=== PATIENT | male | born 1990 | race American Indian/Alaskan Native ===

== ENCOUNTER → 2021-02-01 14:47 | Outpatient (BNVA) | payer SELFPAY | DX: Z11.1 Encounter for screening for respiratory tuberculosis (principal) ==

== ENCOUNTER 2021-07-12 15:04 | Emergency (ER) | payer OTHER, SELFPAY ==
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
[2021-07-12 15:49] VITALS: BP 134/80; PULSE 62; RESP 18; TEMP 36.8; O2SAT 99; BMI 23.6
== END 2021-07-12 16:02 | disposition home or self-care (01) ==
LOC: HO.ED 16:00
PROVIDERS: Emergency Provider Student in an Organized Health Care Education/Training Program
DX: S80.812A Abrasion, left lower leg, initial encounter (principal); M79.605 Pain in left leg; V19.40XA Pedal cycle driver injured in collision with unspecified motor vehicles in traffic accident, initial encounter; Y93.9 Activity, unspecified; Y92.410 Unspecified street and highway as the place of occurrence of the external cause; Y99.9 Unspecified external cause status; Z79.899 Other long term (current) drug therapy
CPT/HCPCS: 99283

== ENCOUNTER 2021-12-18 01:52 | Emergency (ER) | payer MEDICAID, SELFPAY ==
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
[2021-12-18 02:02] VITALS: BP 96/81; PULSE 103; RESP 18; TEMP 38.3; O2SAT 96; BMI 54.8
[2021-12-18 02:22] LABS: Basophils Percent Auto 0.1 % (0-2); Eosinophils Absolute Auto 0.1 X10*3/uL (0.0-0.4); Eosinophils Percent Auto 0.4 % (0-4); Hematocrit 45.7 % (42.0-52.0); Hemoglobin 15.4 g/dl (14.0-18.0); Imm Gran Abs Auto 0.05 X10*3/uL (0.00-0.03); Imm Gran Pct Auto 0.4 % (0.0-0.4); Lymphocytes Absolute Auto 0.5 X10*3/uL (1.2-4.9); Lymphocytes Percent Auto 3.4 % (20-40); MANUAL DIFF FLAG SCAN; Mean Corpuscular HGB Conc 33.7 g/dl (31.0-36.0); Mean Corpuscular Hemoglobin 29.4 pg (27.0-33.0); Mean Corpuscular Volume 87.2 fL (80.0-98.0); Mean Platelet Volume 10.7 fL (9.4-12.4); Monocytes Absolute Auto 0.5 X10*3/uL (0.1-1.2); Monocytes Percent Auto 3.8 % (2-11); Neutrophils Absolute Auto 12.5 x10*3/uL (2.0-8.3); Neutrophils Percent Auto 91.9 % (45-73); Platelet Count 160 X10*3/uL (160-400); Red Blood Count 5.24 X10*6/uL (4.60-5.80); Red Cell Distribution Width 11.6 % (11.0-16.0); SCAN SMEAR FLAG 1; White Blood Count 13.6 X10*3/uL (4.8-10.8)
[2021-12-18 02:39] LABS: Anion Gap 14 (12-20); Blood Urea Nitrogen 14 mg/dL (9-16); Calcium 9.2 mg/dL (8.4-10.2); Carbon Dioxide 25 mmol/L (22-29); Chloride 101 mmol/L (96-108); Creatinine Clr Calc Pharmacy 140.7; Estimated Glomerular Filt Rate > 60; Glucose Random 109 mg/dL (60-115); Potassium 4.1 mmol/L (3.3-5.1); Sodium 136 mmol/L (135-145)
[2021-12-18 02:42] LABS: COVID-19 Test Negative (Negative); IDNOW Serial# 55D5AD1C; Influenza A Negative (Negative); Influenza B2 Negative (Negative)
[2021-12-18 02:58] LABS: SLIDE REVIEW VERIFIED
--- NOTE | 2021-12-18 03:36 | ED.NAVMDI ---
HPI - Nausea/Vomiting/Diarrhea General Chief complaint: Abdominal Pain Stated complaint: heartburn after eating seafood (since 3pm)vomiting Time Seen by Provider: 12/18/21 03:30 Source: patient Mode of arrival: ambulatory Limitations: no limitations History of Present Illness HPI Narrative: Patient comes to emergency room complaining of hours of nausea vomiting, no diarrhea, mild abdominal cramping. Patient states that he ate fish, octopus and other seafood items in a salad earlier today after work. Patient states that he has been having a lot of reflux, nausea. Patient self induced vomiting by sticking his fingers in his mouth. Related Data Previous Rx's Medication Instructions Recorded doxycycline monohydrate 100 mg 100 mg PO BID #20 tab 07/12/21 tablet ibuprofen 800 mg tablet 800 mg PO Q8H PRN #20 tab 07/12/21 mupirocin 2 % topical ointment 1 appl TOPICAL TID #22 g 07/12/21 ondansetron 4 mg disintegrating 4 mg PO Q6H PRN #10 tab 12/18/21 tablet Allergies Allergy/AdvReac Type Severity Reaction Status Date / Time No Known Allergies Allergy Verified 12/18/21 02:02 [No Known Allergies*] Review of Systems Review of Systems: Constitutional : No Weight loss, No Fever, No Chills, No Night Sweats, No Fatigue, No Malaise ENT/Mouth : No Hearing loss, No Ear Pain, No Nasal Congestion, No Sinus Pain, No Hoarseness, No sore throat, No Rhinorrhea, No Swallowing Difficulty Eyes: No Eye Pain, No Swelling, No Redness, No Foreign Body, No Discharge, No Vision Changes Cardiovascular : No Chest Pain, No SOB, No Dyspnea on Exertion, No Orthopnea, No Edema, No Palpitations Respiratory : No Cough, No Sputum, No Wheezing, No Smoke Exposure, No Dyspnea Gastrointestinal : Complaining of nausea vomiting No Diarrhea, No Constipation, complaining of mild abdominal cramping Genitourinary : no irregular bleeding, No Dysuria, No Urinary Frequency, No Hematuria, No Urinary Incontinence, No Urgency, No Flank Pain, No Urinary Flow Changes, No Hesitancy Musculoskeletal : No joint pain, No Myalgias, No Joint Swelling Skin : No Skin Lesions, No rash Neuro : No Weakness, No Numbness, No Paresthesias, No Loss of Consciousness, No Dizziness, No Headache Psych : No Anxiety/Panic, No Depression, No SI/HI/AH/VH, No Social Issues, Heme/Lymph: No Bruising, No Bleeding,No Lymphadenopathy Endocrine : No Polyuria, No Polydipsia, No Temperature Intolerance [facility] Social History Social History Alcohol intake: never Patient Tobacco Use Status: Never used Tobacco Use of substances other than those prescribed or required for medical reasons: No Advance Directives: No Advance Directives Information Provided: No Physical Exam Vital Signs: Vital Signs: Last Vital Signs Temp 100.9 F H 12/18/21 02:02 Pulse 83 12/18/21 04:00 Resp 16 12/18/21 04:00 BP 116/63 12/18/21 04:00 Pulse Ox 98 12/18/21 04:00 BMI result Body Mass Index 54.8 Const: Other: Appearance: Alert. Oriented X3. No acute distress. Eyes: Pupils equal, round and reactive to light. ENT: Pharynx normal. Neck: Normal inspection. Neck supple. No lymph nodes noted. No crepitus CVS: Normal heart rate and rhythm. Pulses normal. Normal S1 and S2 Respiratory: No respiratory distress. Breath sounds normal. No Wheezing. No rales Abdomen: Soft and nontender. No rigidity. No distention. Skin: Skin warm and dry. Normal skin color. Normal skin turgor. Extremities: No lower extremity edema. No Lacerations. No Rash Neuro: Oriented X 3. No motor deficit. No sensory deficit. Moving all extremities. No slurred speech. CN 2 through 12 grossly intact Psych: calm, cooperative, normal affect Course Course Course Narrative: Patient was given 1 L of IV fluids, Zofran, Pepcid. All labs pending. It was noted that patient has a temperature of 100.9 degrees oral. Patient denies any flu-like symptoms, patient tested negative for COVID and influenza. Chest x-ray and urinalysis pending. Patient has UTI symptoms either Patient tested negative. Chest x-ray within limits Patient likely having a viral syndrome MDM - Nausea/Vomiting/Diarrhea Lab Data Result diagrams: 12/18/21 02:14 12/18/21 02:14 Labs: Lab Results 12/18/21 12/18/21 12/18/21 Range/Units 02:12 02:12 02:14 WBC 13.6 H (4.8-10.8) X10*3/uL RBC 5.24 (4.60-5.80) X10*6/uL Hgb 15.4 (14.0-18.0) g/dl Hct 45.7 (42.0-52.0) % MCV 87.2 (80.0-98.0) fL MCH 29.4 (27.0-33.0) pg MCHC 33.7 (31.0-36.0) g/dl RDW 11.6 (11.0-16.0) % Plt Count 160 (160-400) X10*3/uL MPV 10.7 (9.4-12.4) fL Immature Gran % (Auto) 0.4 (0.0-0.4) % Neut % (Auto) 91.9 H (45-73) % Lymph % (Auto) 3.4 L (20-40) % [place] % (Auto) 3.8 (2-11) % Eos % (Auto) 0.4 (0-4) % Baso % (Auto) 0.1 (0-2) % Lymph # (Auto) 0.5 L (1.2-4.9) X10*3/uL [place] # (Auto) 0.5 (0.1-1.2) X10*3/uL Eos # (Auto) 0.1 (0.0-0.4) X10*3/uL Baso # (Auto) 0.0 (0.0-0.2) X10*3/uL Abs Immat Gran (auto) 0.05 H (0.00-0.03) X10*3/uL Absolute Neuts (auto) 12.5 H (2.0-8.3) x10*3/uL Absolute Nucleated RBC 0.000 (0.0-0.012) X10*3/uL Nucleated RBC % (auto) 0.0 (0.0-0.2) /100WBC Smear Tech's Comments VERIFIED Sodium (135-145) mmol/L Potassium (3.3-5.1) mmol/L Chloride (96-108) mmol/L Carbon Dioxide (22-29) mmol/L Anion Gap (12-20) BUN (9-16) mg/dL Creatinine (0.5-1.4) mg/dL Estim Creat Clear Calc Estimated GFR Random Glucose (60-115) mg/dL Calcium (8.4-10.2) mg/dL COVID-19 (WOLF) Negative (Negative) COVID-19 Clin Com See Note Influenza Type A (ZEFERINO) Negative (Negative) Influenza Type B (ZEFERINO) Negative (Negative) Influenza A & B Note See Note 12/18/21 Range/Units 02:14 WBC (4.8-10.8) X10*3/uL RBC (4.60-5.80) X10*6/uL Hgb (14.0-18.0) g/dl Hct (42.0-52.0) % MCV (80.0-98.0) fL MCH (27.0-33.0) pg MCHC (31.0-36.0) g/dl RDW (11.0-16.0) % Plt Count (160-400) X10*3/uL MPV (9.4-12.4) fL Immature Gran % (Auto) (0.0-0.4) % Neut % (Auto) (45-73) % Lymph % (Auto) (20-40) % [place] % (Auto) (2-11) % Eos % (Auto) (0-4) % Baso % (Auto) (0-2) % Lymph # (Auto) (1.2-4.9) X10*3/uL [place] # (Auto) (0.1-1.2) X10*3/uL Eos # (Auto) (0.0-0.4) X10*3/uL Baso # (Auto) (0.0-0.2) X10*3/uL Abs Immat Gran (auto) (0.00-0.03) X10*3/uL Absolute Neuts (auto) (2.0-8.3) x10*3/uL Absolute Nucleated RBC (0.0-0.012) X10*3/uL Nucleated RBC % (auto) (0.0-0.2) /100WBC Smear Tech's Comments Sodium 136 (135-145) mmol/L Potassium 4.1 (3.3-5.1) mmol/L Chloride 101 (96-108) mmol/L Carbon Dioxide 25 (22-29) mmol/L Anion Gap 14 (12-20) BUN 14 (9-16) mg/dL Creatinine 1.23 (0.5-1.4) mg/dL Estim Creat Clear Calc 140.7 Estimated GFR > 60 Random Glucose 109 (60-115) mg/dL Calcium 9.2 (8.4-10.2) mg/dL COVID-19 ([facility]OL[facility]) (Negative) COVID-19 Clin Com Influenza Type A (ZEFERINO) (Negative) Influenza Type B (ZEFERINO) (Negative) Influenza A & B Note Imaging Data Chest x-ray: Radiologist's impression: ?Lungs are clear. No consolidation, pneumothorax, or pleural effusion. Cardiac and mediastinal contours are normal. Pulmonary vasculature is unremarkable. Osseous structures are unremarkable. XR/XR chest 1V IMPRESSION: No acute cardiopulmonary findings Discharge Plan Discharge Clinical Impression: Vomiting, Abdominal pain Patient Disposition: Home, Self-Care Instructions: Acute Nausea and Vomiting (ED), Abdominal Pain (ED) Additional Instructions: Please follow-up with your primary care physician tomorrow. If you have any worsening or new symptoms, please return to the emergency room or call 911 Prescriptions: New ondansetron 4 mg tablet,disintegrating 4 mg PO Q6H PRN (Reason: nausea and vomiting) Qty: 10 0RF No Action doxycycline monohydrate 100 mg tablet 100 mg PO BID Qty: 20 0RF ibuprofen 800 mg tablet 800 mg PO Q8H PRN (Reason: pain) Qty: 20 0RF mupirocin 2 % ointment 1 appl topical TID Qty: 22 0RF
[2021-12-18 04:00] VITALS: BP 116/63; PULSE 83; RESP 16; O2SAT 98
[2021-12-18] MEDS: 0.9 % Sodium Chloride 1,000 ML 999 ML IVCONT (04:00)
[2021-12-18] MEDS: Famotidine/PF 20 MG/2 ML VIAL IVPUSH (04:00)
[2021-12-18] MEDS: ondansetron HCL 4 MG/2 ML VIAL IVPUSH (04:01)
== END 2021-12-18 05:27 | disposition home or self-care (01) ==
PROVIDERS: Emergency Provider Emergency Medicine
DX: R11.2 Nausea with vomiting, unspecified (principal); R10.9 Unspecified abdominal pain; Z20.822 Contact with and (suspected) exposure to COVID-19; R50.9 Fever, unspecified
CPT/HCPCS: 36415; 71045; 80048; 85025; 87502; 87635; 96361; 96374; 96375; 99284; J2405

== ENCOUNTER 2022-04-17 21:39 | Emergency (ER) | payer OTHER, MEDICAID, SELFPAY ==
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
[2022-04-17 22:02] VITALS: BP 116/59; PULSE 67; RESP 18; TEMP 36.3; O2SAT 99; BMI 22.3
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
[2022-04-18] MEDS: Ibuprofen 600 MG TABLET PO (00:42)
[2022-04-18] MEDS: Acetaminophen 325 MG TABLET 975 MG PO (00:43)
== END 2022-04-18 00:51 | disposition home or self-care (01) ==
PROVIDERS: Emergency Provider Emergency Medicine Emergency Medical Services
DX: S46.912A Strain of unspecified muscle, fascia and tendon at shoulder and upper arm level, left arm, initial encounter (principal); S89.92XA Unspecified injury of left lower leg, initial encounter; S00.31XA Abrasion of nose, initial encounter; M25.512 Pain in left shoulder; M25.562 Pain in left knee; V43.52XA Car driver injured in collision with other type car in traffic accident, initial encounter; Y93.9 Activity, unspecified; Y92.488 Other paved roadways as the place of occurrence of the external cause; Y99.9 Unspecified external cause status; Z79.899 Other long term (current) drug therapy
CPT/HCPCS: 73030; 73562; 99283; 99284

== ENCOUNTER 2023-08-02 21:26 | Emergency (ER) | payer MEDICAID, SELFPAY ==
--- NOTE | ~2023-08-02 | XR_ITS ---
EXAMINATION: XR CHEST CLINICAL INFORMATION: Fever COMPARISON: Previous chest x-ray November 2021 TECHNIQUE: 2 views of the chest were obtained. FINDINGS: No significant abnormality is noted involving the heart, lungs, mediastinum, bony thorax or soft tissues. XR/XR chest 2V IMPRESSION: Unremarkable examination.
[2023-08-02 21:30] VITALS: BP 119/56; PULSE 73; RESP 16; TEMP 38.4; O2SAT 98; BMI 23.7
[2023-08-02 21:52] LABS: Appearance Urine Clear; Color Urine Yellow; Glucose Urine UA Negative (Negative); Leukocyte Esterase Urine Negative (Negative); Nitrite Urine Negative (Negative); Urine Blood Negative (Negative); Urine Ketones Negative (Negative); Urine Protein Trace mg/dL (Neg-Trace)
[2023-08-02 22:04] LABS: IDNOW Serial# 08D9AD1C; Strep A Nucleic Acid Negative (Negative)
[2023-08-02] MEDS: Ondansetron ODT 4 MG TAB.RAPDIS TRANSLINGU (22:22)
[2023-08-02] MEDS: Acetaminophen 325 MG TABLET 975 MG PO (22:22)
--- NOTE | 2023-08-02 22:22 | ED_ITS ---
HPI - Fever General Chief Complaint: General Medical Stated Complaint: since , high fever Time Seen by Provider: 08/02/23 22:15 Source: patient Mode of arrival: ambulatory Limitations: no limitations History of Present Illness HPI Narrative: 32 yo male otherwise healthy not vaccinated here with fevers and body aches, cough and did vomit on Monday. He is now eating at this time. He has no known sick contacts he did go to work yesterday but it was hard and he didn't feel well. MD elicited complaint: fever Onset (ago): day(s) (2) Exacerbating factors: nothing Relieving factors: cold medicine and rest Associated symptoms: rhinorrhea, cough, nausea and other (myalgias) Treatments prior to arrival fever: none Related Data Previous Rx's Medication Instructions Recorded doxycycline monohydrate 100 mg 100 mg PO BID #20 tabs 07/12/21 tablet ibuprofen 800 mg tablet 800 mg PO Q8H PRN pain #20 tabs 07/12/21 mupirocin 2 % topical ointment 1 appl topical TID #22 grams 07/12/21 ondansetron 4 mg disintegrating 4 mg PO Q6H PRN nausea and 12/18/21 tablet vomiting #10 tabs Allergies Allergy/AdvReac Type Severity Reaction Status Date / Time No Known Allergies Allergy Verified 04/17/22 22:02 [No Known Allergies*] Review of Systems Review of Systems: Constitutional : positive Fever, positive Chills, positive fatigue, positive Malaise ENT/Mouth : no sore throat, positive runny nose Eyes: No Discharge Cardiovascular : No Chest Pain, No SOB Respiratory : pos Cough, No Sputum Gastrointestinal : No Nausea, No Vomiting, No Diarrhea Genitourinary : No Dysuria, No Urinary Frequency Musculoskeletal : positive Myalgia Skin : No rash Neuro : No Headache All other systems reviewed and are negative PMFSH Social History Social History Alcohol intake: never Patient Tobacco Use Status: Never used Tobacco Advance Directives: No Advance Directives Information Provided: No Physical Exam Vital Signs: Vital Signs: Last Vital Signs Temp 101.2 F H 08/02/23 21:30 Pulse 73 08/02/23 21:30 Resp 16 08/02/23 21:30 BP 119/56 L 08/02/23 21:30 Pulse Ox 98 08/02/23 21:30 O2 Del Method Room Air 08/02/23 21:30 BMI result Body Mass Index 23.7 Appearance: Alert. Oriented X3. No acute distress. Eyes: Pupils equal, round and reactive to light. ENT: Pharynx normal. Neck: Normal inspection. Neck supple. CVS: Normal heart rate and rhythm. Pulses normal. Respiratory: No respiratory distress. Breath sounds normal. Abdomen: Soft and nontender. Skin: Skin warm and dry. Normal skin color. Normal skin turgor. Extremities: No lower extremity edema. No calf ttp Neuro: Oriented X 3. No motor deficit. No sensory deficit. Medications Administered Discontinued Medications Generic Name Dose Route Start Last Admin Trade Name Freq PRN Reason Stop Dose Admin Acetaminophen 975 mg 08/02/23 22:16 08/02/23 22:22 Acetaminophen 325 Mg Tablet PO 08/02/23 22:17 975 mg ONCE ONE Administration Ondansetron HCl 4 mg 08/02/23 22:16 08/02/23 22:22 Ondansetron Odt 4 Mg Tab.Rapdis TRANSLINGU 08/02/23 22:17 4 mg ONCE ONE Administration Medical Decision Making Medical Decision Making [facility] [place] Narrative: 32 yo male not vaccinated here with viral like symptoms not toxic, tolerating PO now - at this time viral panel, CXR ordered. He looks well suspect viral sympto ms. Did discuss use of paxlovid if positive and he refuses at this time. Given precautions to return. Differential Diagnosis Differential Diagnoses: The differential diagnosis associated with the presentation includes pneumonia, viral infection Admission/Observation Consideration of admission/observation: Escalation of care including admission/observation considered no hypoxia, not toxic, tolerating PO Lab Data [facility] [place] Lab Attestation statement: I reviewed the patient's lab results. Labs: Lab Results 08/02/23 08/02/23 Range/Units 21:39 21:40 Urine Color Yellow Urine Appearance Clear Urine pH 8.0 (5.0-9.0) Ur Specific [place] 1.020 (1.005-1.025) Urine Protein Trace (Neg-Trace) mg/dL Urine Glucose (UA) Negative (Negative) mg/dL Urine Ketones Negative (Negative) mg/dL Urine Blood Negative (Negative) Urine Nitrite Negative (Negative) Ur Leukocyte Esterase Negative (Negative) Influenza Type A (PCR) NEGATIVE (Negative) Influenza Type B (PCR) NEGATIVE (Negative) RSV RNA Qual (PCR) NEGATIVE (Negative) SARS-CoV-2 RNA (RT-PCR) POSITIVE A (Negative) S. pyogenes GrpA ZEFERINO Negative (Negative) Independent Interpretation I performed an independent interpretation of an: Plain X-Ray (no pneumonia) Radiology Impression Discussion of test interpretation with radiology: I have reviewed the radiologist's reading. Independent Historian Clinical information obtained from an independent historian. History obtained from or confirmed by: Spouse Prescription Management I considered prescription management with: Antiviral (refuses) Discharge Plan Discharge Clinical Impression: COVID-19 Patient Disposition: Home, Self-Care Instructions: COVID-19 (Coronavirus Disease 2019) (ED) Additional Instructions: return for worsening breathing, chest pain, inability to eat or drink or any other concerns. wear a mask and protect others. Regrese si empeora la respiraci?n, dolor en el pecho, incapacidad para comer o beber o cualquier otra inquietud. use tamanna m?scara y proteja a los dem?s. Prescriptions: No Action ondansetron 4 mg tablet,disintegrating 4 mg PO Q6H PRN (Reason: nausea and vomiting) Qty: 10 0RF doxycycline monohydrate 100 mg tablet 100 mg PO BID Qty: 20 0RF ibuprofen 800 mg tablet 800 mg PO Q8H PRN (Reason: pain) Qty: 20 0RF mupirocin 2 % ointment 1 appl topical TID Qty: 22 0RF Stand Alone Forms: Work/School Release Print Language: Tongan
[2023-08-02 22:31] LABS: Influenza A PCR NEGATIVE (Negative); Influenza B PCR NEGATIVE (Negative); Resp Syncy Virus RNA Qual PCR NEGATIVE (Negative); SARS COV2 PCR INHOUSE POSITIVE (Negative)
== END 2023-08-02 22:55 | disposition home or self-care (01) ==
PROVIDERS: Emergency Provider Emergency Medicine
DX: U07.1 COVID-19 (principal); R50.9 Fever, unspecified; R05.9 Cough, unspecified; R11.2 Nausea with vomiting, unspecified; M79.10 Myalgia, unspecified site; Z79.899 Other long term (current) drug therapy
CPT/HCPCS: 0241U; 71046; 81003; 87651; 99283

== ENCOUNTER 2023-10-20 12:30 | Emergency (ER) | payer MEDICAID, SELFPAY ==
--- NOTE | ~2023-10-20 | XR_ITS ---
EXAMINATION: XR LUMBOSACRAL SPINE CLINICAL INFORMATION: Sudden pain after lifting. COMPARISON: None available. TECHNIQUE: Three views of the lumbosacral spine. FINDINGS: The vertebral bodies and posterior elements are normal. The disc spaces are preserved and the vertebral alignment is normal. The paraspinal soft tissues are normal. XR/XR lumbar spine 2-3V IMPRESSION: Unremarkable lumbar spine exam.
--- NOTE | 2023-10-20 13:08 | ED.BACK ---
HPI - Back Pain/Injury General Chief Complaint: Back Pain/Injury Stated Complaint: Back Pain No Injury Time Seen by Provider: 10/20/23 14:50 Related Data Previous Rx's Medication Instructions Recorded doxycycline monohydrate 100 mg 100 mg PO BID #20 tabs 07/12/21 tablet ibuprofen 800 mg tablet 800 mg PO Q8H PRN pain #20 tabs 07/12/21 mupirocin 2 % topical ointment 1 appl topical TID #22 grams 07/12/21 ondansetron 4 mg disintegrating 4 mg PO Q6H PRN nausea and 12/18/21 tablet vomiting #10 tabs acetaminophen 500 mg tablet 500 mg PO Q6H PRN fever or pain 10/20/23 (Tylenol Extra Strength) #14 tabs cyclobenzaprine 5 mg tablet 5 mg PO Q8H PRN pain (scale score 10/20/23 7-10) 5 days #14 tabs lidocaine 5 % topical patch 1 patch topical DAILY PRN pain #30 10/20/23 (Lidoderm) ea naproxen 500 mg tablet 500 mg PO BID PRN pain 10 days #20 10/20/23 tabs Allergies Allergy/AdvReac Type Severity Reaction Status Date / Time No Known Allergies Allergy Verified 04/17/22 22:02 [No Known Allergies*] [facility] Social History Social History Alcohol intake: never Patient Tobacco Use Status: Never used Tobacco Advance Directives: No Advance Directives Information Provided: No Physical Exam Vital Signs: Vital Signs: Last Vital Signs Temp 98.0 F 10/20/23 13:09 Pulse 66 10/20/23 13:09 Resp 16 10/20/23 15:41 BP 115/28 L 10/20/23 13:09 Pulse Ox 96 10/20/23 13:09 O2 Del Method Room Air 10/20/23 13:09 BMI result Body Mass Index 25.3 Course Course Course Narrative: This is an RME: Additional HPI, ROS, PE not included below will be deferred to primary provider. Patient is a 33-year-old male who presents to the emergency department for evaluation of left lower back pain x2 days, sudden onset after lifting something heavy. Denies radiation. Denies bladder bowel dysfunction. No saddle paresthesias. Did not take any medications at home. Denies genitourinary symptoms Plan: XR lumbar spine Medications Administered Discontinued Medications Generic Name Dose Route Start Last Admin Trade Name Freq PRN Reason Stop Dose Admin Ketorolac Tromethamine 30 mg 10/20/23 15:27 10/20/23 15:38 Ketorolac Tromethamine 30 Mg/Ml Vial IM 10/20/23 15:28 30 mg ONCE ONE Administration Discharge Plan Discharge Clinical Impression: Strain of lumbar region Patient Disposition: Home, Self-Care Instructions: Acute Low Back Pain (ED) Additional Instructions: Your pain is likely musculoskeletal Flexeril is a muscle relaxer, take at night as it makes you drowsy, do not drive, drink alcohol, or operate machinery while taking it Naproxen as an anti-inflammatory / pain medication, take with food Lidoderm patches are numbing patches, apply to painful area In addition take Tylenol at home If symptoms persist or worsen, pain becomes unbearable, you developed urinary retention or incontinence, or weakness return to the ED Es probable que bedoya dolor sea musculoesquel?adi. Flexeril es un relajante muscular, t?buckley por la noche ya que produce somnolencia, no conduzca, felix alcohol ni opere maquinaria mientras lo martin. Naproxeno quinten antiinflamatorio/analg?sico, lana con alimentos Los parches de Lidoderm son parches adormecedores, se aplican en el ?padilla dolorida. Adem?s, tome Tylenol en casa. Si los s?ntomas persisten o empeoran, el dolor se vuelve insoportable, usted desarrolla retenci?n urinaria o incontinencia, o debilidad, regrese al servicio de urgencias. Prescriptions: New acetaminophen [Tylenol Extra Strength] 500 mg tablet 500 mg PO Q6H PRN (Reason: fever or pain) Qty: 14 0RF lidocaine [Lidoderm] 5 % adhesive patch,medicated 1 patch topical DAILY MDD remove after 12 hours PRN (Reason: pain) Qty: 30 0RF Rx Instructions: leave on most painful area for up to 12 hrs naproxen 500 mg tablet 500 mg PO BID PRN (Reason: pain) 10 Days Qty: 20 0RF cyclobenzaprine 5 mg tablet 5 mg PO Q8H PRN (Reason: pain (scale score 7-10)) 5 Days Qty: 14 0RF No Action ondansetron 4 mg tablet,disintegrating 4 mg PO Q6H PRN (Reason: nausea and vomiting) Qty: 10 0RF doxycycline monohydrate 100 mg tablet 100 mg PO BID Qty: 20 0RF ibuprofen 800 mg tablet 800 mg PO Q8H PRN (Reason: pain) Qty: 20 0RF mupirocin 2 % ointment 1 appl topical TID Qty: 22 0RF Referrals: [facility] [Primary Care Provider] - 5 days Stand Alone Forms: Work/School Release Interventions: ED Discharge Assessment Last Done: 10/20/23 15:41 Discharge Date/Time: 10/20/23 15:42 Print Language: Latvian
[2023-10-20 13:09] VITALS: BP 115/28; PULSE 66; RESP 16; TEMP 36.7; O2SAT 96; BMI 25.3
--- NOTE | 2023-10-20 15:31 | ED.BACK ---
HPI - Back Pain/Injury General Chief Complaint: Back Pain/Injury Stated Complaint: Back Pain No Injury Time Seen by Provider: 10/20/23 14:50 Source: patient, RN notes reviewed and old records reviewed Mode of arrival: ambulatory History of Present Illness HPI Narrative: 33-year-old male with no significant past medical history presenting to ED complaining of left-sided low back pain x 2 days s/p doing back exercises at the gym. Denies taking anything for pain at home. Denies radiation of pain to lower extremities, numbness, tingling, weakness, incontinence/retention, fever, abdominal pain, direct injury/fall MD elicited complaint: back pain Related Data Previous Rx's Medication Instructions Recorded doxycycline monohydrate 100 mg 100 mg PO BID #20 tabs 07/12/21 tablet ibuprofen 800 mg tablet 800 mg PO Q8H PRN pain #20 tabs 07/12/21 mupirocin 2 % topical ointment 1 appl topical TID #22 grams 07/12/21 ondansetron 4 mg disintegrating 4 mg PO Q6H PRN nausea and 12/18/21 tablet vomiting #10 tabs acetaminophen 500 mg tablet 500 mg PO Q6H PRN fever or pain 10/20/23 (Tylenol Extra Strength) #14 tabs cyclobenzaprine 5 mg tablet 5 mg PO Q8H PRN pain (scale score 10/20/23 7-10) 5 days #14 tabs lidocaine 5 % topical patch 1 patch topical DAILY PRN pain #30 10/20/23 (Lidoderm) ea naproxen 500 mg tablet 500 mg PO BID PRN pain 10 days #20 10/20/23 tabs Allergies Allergy/AdvReac Type Severity Reaction Status Date / Time No Known Allergies Allergy Verified 04/17/22 22:02 [No Known Allergies*] Review of Systems Review of Systems: Constitutional: No Fever, No Chills ENT/Mouth: No Ear Pain, No Nasal Congestion, No sore throat, No Rhinorrhea, No Swallowing Difficulty Cardiovascular: No Chest Pain, No SOB Respiratory: No Cough, No Sputum Gastrointestinal: No Nausea, No Vomiting,No Abdominal pain Genitourinary: No Dysuria, No Urinary Frequency, No Hematuria, No Urinary Incontinence/retention, No Flank Pain Musculoskeletal: +joint pain, No Myalgias, No Joint Swelling Skin: No Skin Lesions, No rash Neuro: No Weakness, No Numbness, No Paresthesias Yes all other systems are reviewed and are negative Constitutional: Constitutional: Reports as per [facility] Past Medical History Attestation statement: The following information was validated with the patient. Source: old records reviewed Social History Social History Alcohol intake: never Patient Tobacco Use Status: Never used Tobacco Advance Directives: No Advance Directives Information Provided: No Physical Exam Vital Signs: Vital Signs: Last Vital Signs Temp 98.0 F 10/20/23 13:09 Pulse 66 10/20/23 13:09 Resp 16 10/20/23 13:09 BP 115/28 L 10/20/23 13:09 Pulse Ox 96 10/20/23 13:09 O2 Del Method Room Air 10/20/23 13:09 BMI result Body Mass Index 25.3 Const: General: cooperative, healthy appearing and no acute distress Orientation/consciousness: patient oriented x3 Limitations: no limitations HEENT: Head: Yes normal to inspection and Yes atraumatic Ears: hearing grossly normal bilaterally General nose exam: Normal external nose present Face and sinus: Yes normal facial exam Eyes: General: appearance normal, both eyes and all related structures EOM: EOMs intact bilaterally Neck: Neck: Yes normal visual inspection and Yes no meningeal signs Resp: Effort & Inspection: normal respiratory effort and no respiratory distress Auscultation: clear to auscultation bilaterally Cardio: Rate: regular rate Heart sounds: S1 normal heart sound present and S2 normal heart sound present GI: Inspection: Yes normal to inspection Palpation (GI): Soft to palpation, nontender, no guarding and not rigid : General: Yes no CVA tenderness Back/Spine/Pelvis: Other: No midline cervical/thoracic/lumbar spinous tenderness/step-off or deformity. + left-sided lower lumbar MSK/paraspinal tenderness to palpation with palpable muscle spasming. No erythema/warmth or rash Back: no CVA tenderness Skin: Rashes: no rashes Wounds: no wounds Neuro: Other: Strength intact throughout. No saddle anesthesia. Sensation intact to light touch. Neurovascular intact distally General: patient oriented x3, gait normal, tone normal, moves all extremities, no meningeal signs and no focal motor deficits Cranial nerves: Yes CN's II-XII intact bilaterally Cognition (Neuro): normal cognition Gait exam (Neuro): Normal gait present Motor exam (neuro): 5/5 motor strength present throughout Extrem: General: Yes normal to inspection Course Course Course Narrative: XR lumbar spine 2-3V IMPRESSION: Unremarkable lumbar spine exam Results discussed with patient including worrisome signs and symptoms and strict return precautions, and when to return to the emergency department. They verbalized understanding and feel safe for discharge at this time. Medical Decision Making Medical Decision Making [facility] Narrative: 33-year-old male with no significant past medical history presenting to ED complaining of left-sided low back pain x 2 days s/p doing back exercises at the gym. On exam vital signs stable, NAD, nontoxic appearing physical exam as noted above. Concern for MSK pain/strain and spasming. Low suspicion for cauda equina/cord compression, epidural abscess or fracture X-rays ordered in triage, pain control Please refer to course for remaining clinical decision making, interpretation of labs/imaging results, and discussions with consultants and/or family members. Differential Diagnosis Differential Diagnoses: The differential diagnosis associated with the presentation includes As above Independent Interpretation I performed an independent interpretation of an: Plain X-Ray Radiology Impression Discussion of test interpretation with radiology: I have reviewed the radiologist's reading. External Record Review External record reviewed: Inpatient record, Office record, Outpatient record, Prior outpatient labs, Prior outpatient radiology, Primary care record and Outside ED record Tests considered The following testing was considered but not selected: As above Prescription Management I considered prescription management with: Pain Medication Discharge Plan Discharge Clinical Impression: Strain of lumbar region Patient Disposition: Home, Self-Care Instructions: Acute Low Back Pain (ED) Additional Instructions: Your pain is likely musculoskeletal Flexeril is a muscle relaxer, take at night as it makes you drowsy, do not drive, drink alcohol, or operate machinery while taking it Naproxen as an anti-inflammatory / pain medication, take with food Lidoderm patches are numbing patches, apply to painful area In addition take Tylenol at home If symptoms persist or worsen, pain becomes unbearable, you developed urinary retention or incontinence, or weakness return to the ED Es probable que bedoya dolor sea musculoesquel?adi. Flexeril es un relajante muscular, t?buckley por la noche ya que produce somnolencia, no conduzca, felix alcohol ni opere maquinaria mientras lo martin. Naproxeno quinten antiinflamatorio/analg?sico, lana con alimentos Los parches de Lidoderm son parches adormecedores, se aplican en el ?padilla dolorida. Adem?s, tome Tylenol en casa. Si los s?ntomas persisten o empeoran, el dolor se vuelve insoportable, usted desarrolla retenci?n urinaria o incontinencia, o debilidad, regrese al servicio de urgencias. Prescriptions: New acetaminophen [Tylenol Extra Strength] 500 mg tablet 500 mg PO Q6H PRN (Reason: fever or pain) Qty: 14 0RF lidocaine [Lidoderm] 5 % adhesive patch,medicated 1 patch topical DAILY MDD remove after 12 hours PRN (Reason: pain) Qty: 30 0RF Rx Instructions: leave on most painful area for up to 12 hrs naproxen 500 mg tablet 500 mg PO BID PRN (Reason: pain) 10 Days Qty: 20 0RF cyclobenzaprine 5 mg tablet 5 mg PO Q8H PRN (Reason: pain (scale score 7-10)) 5 Days Qty: 14 0RF No Action ondansetron 4 mg tablet,disintegrating 4 mg PO Q6H PRN (Reason: nausea and vomiting) Qty: 10 0RF doxycycline monohydrate 100 mg tablet 100 mg PO BID Qty: 20 0RF ibuprofen 800 mg tablet 800 mg PO Q8H PRN (Reason: pain) Qty: 20 0RF mupirocin 2 % ointment 1 appl topical TID Qty: 22 0RF Referrals: [facility] [Primary Care Provider] - 5 days Stand Alone Forms: Work/School Release Print Language: Malian
[2023-10-20] MEDS: Ketorolac Tromethamine 30 MG/ML VIAL IM (15:38)
[2023-10-20 15:41] VITALS: RESP 16
--- NOTE | 2023-10-20 15:41 | PC.NURSE ---
pt medicated per MAR.
== END 2023-10-20 15:42 | disposition home or self-care (01) ==
PROVIDERS: Emergency Provider Emergency Medicine
DX: S39.012A Strain of muscle, fascia and tendon of lower back, initial encounter (principal); X50.9XXA Other and unspecified overexertion or strenuous movements or postures, initial encounter; Y93.B9 Activity, other involving muscle strengthening exercises; Y92.59 Other trade areas as the place of occurrence of the external cause; Y99.9 Unspecified external cause status
CPT/HCPCS: 72100; 96372; 99284; J1885

== ENCOUNTER 2024-02-10 11:54 | Emergency (ER) | payer MEDICAID, SELFPAY ==
[2024-02-10 12:02] VITALS: BP 106/34; PULSE 57; RESP 16; TEMP 36.6; O2SAT 98; BMI 26.5
--- NOTE | 2024-02-10 12:02 | ED_ITS ---
HPI - Back Pain/Injury General Chief Complaint: Back Pain/Injury Stated Complaint: back pain Time Seen by Provider: 02/10/24 12:06 Source: patient and court interpreter Mode of arrival: ambulatory Limitations: language barrier History of Present Illness HPI Narrative: 33 yo male with no known medical history presents to the ER with complaints of left lower back pain after lifting weights at the gym yesterday. Denies numbness or tingling in the legs or in the groin. No bowel or bladder incontinence. No fevers or chills. Has not tried any [id number] medications prior to arrival. Patient arrives ambulatory. Related Data Previous Rx's ?Medication ?Instructions ?Recorded doxycycline monohydrate 100 mg 100 mg PO BID #20 tabs 07/12/21 tablet ibuprofen 800 mg tablet 800 mg PO Q8H PRN pain #20 tabs 07/12/21 mupirocin 2 % topical ointment 1 appl topical TID #22 grams 07/12/21 ondansetron 4 mg disintegrating 4 mg PO Q6H PRN nausea and 12/18/21 tablet vomiting #10 tabs acetaminophen 500 mg tablet 500 mg PO Q6H PRN fever or pain 10/20/23 (Tylenol Extra Strength) #14 tabs cyclobenzaprine 5 mg tablet 5 mg PO Q8H PRN pain (scale score 10/20/23 7-10) 5 days #14 tabs lidocaine 5 % topical patch 1 patch topical DAILY PRN pain #30 10/20/23 (Lidoderm) ea naproxen 500 mg tablet 500 mg PO BID PRN pain 10 days #20 10/20/23 tabs cyclobenzaprine 10 mg tablet 10 mg PO TID PRN muscle spasm #15 02/10/24 tabs lidocaine 5 % topical patch 1 patch topical DAILY #15 ea 02/10/24 (Lidoderm) naproxen 500 mg tablet 500 mg PO BID PRN pain #30 tabs 02/10/24 Allergies Allergy/AdvReac Type Severity Reaction Status Date / Time No Known Allergies Allergy Verified 02/10/24 12:03 [No Known Allergies*] Review of Systems Review of Systems: Yes all other systems are reviewed and are negative Constitutional: Constitutional: Reports no additional constitutional complaints, Denies body ache(s), Denies chills, Denies fever(s), Denies headache(s), Denies night sweats, Denies weakness and Denies weight loss Eyes: Eyes: Reports no additional eye complaints and Denies change in vision ENT: Reports system reviewed and no additional complaints, except as documented, Denies dizziness, Denies headache(s), Denies nasal congestion, Denies nasal discharge and Denies neck pain Cardiovascular: Cardiovascular: Reports no additional cardiovascular complaints, Denies chest pain, Denies leg edema and Denies dyspnea Respiratory: Respiratory: Reports no additional respiratory complaints, Denies cough and Denies dyspnea Gastrointestinal: Gastrointestinal: Reports no additional gastrointestinal complaints, Denies abdominal pain, Denies diarrhea, Denies nausea and Denies vomiting Genitourinary: Genitourinary: Denies urinary incontinence Musculoskeletal: Musculoskeletal: Reports no additional musculoskeletal complaints, Reports back pain, Denies arthralgias, Denies joint swelling, Denies neck pain, Denies numbness and Denies tingling Integumentary/Breasts: Skin/Breast: Reports system reviewed and no additional complaints, except as docu and Denies rash Neurologic: Reports system reviewed and no additional complaints, except as documented, Denies Abnormal speech present, Denies dizziness, Denies headache(s), Denies numbness, Denies tingling and Denies weakness PMFSH Past Medical History Attestation statement: The following information was validated with the patient. Source: old records reviewed and nursing notes reviewed Social History Social History Alcohol intake: never Patient Tobacco Use Status: Never used Tobacco Physical Exam Vital Signs: Vital Signs: Last Vital Signs Temp 98 F 02/10/24 12:02 Pulse 57 02/10/24 12:02 Resp 16 02/10/24 12:02 BP 106/34 L 02/10/24 12:02 Pulse Ox 98 02/10/24 12:02 O2 Del Method Room Air 02/10/24 12:02 BMI result Body Mass Index 26.5 Const: General: cooperative, healthy appearing, comfortable and no acute distress Orientation/consciousness: patient oriented x3 Limitations: no limitations HEENT: Head: Yes normal to inspection Ears: hearing grossly normal bilaterally General nose exam: Normal external nose present Face and sinus: Yes normal facial exam Mouth: Normal oral and palatal mucosa present Throat: Yes posterior oropharynx normal Eyes: General: appearance normal, both eyes and all related structures Pupils: Equal, round and reactive pupils present Neck: Neck: Yes normal visual inspection Chest: Chest palpation & inspection: normal inspection of the chest Resp: Effort & Inspection: normal respiratory effort Auscultation: clear to auscultation bilaterally Cardio: Rate: regular rate Rhythm: regular rhythm Peripheral pulses: Peripheral pulses 2+ throughout GI: Inspection: Yes normal to inspection Palpation (GI): Soft to palpation and nontender Auscultation: normal bowel sounds : General: Yes no CVA tenderness Back/Spine/Pelvis: Other: TTP to left lumbar soft tissue which is worsened with flexion/extension of the lumbar spine Back: no CVA tenderness Thoracic/Lumbar Spine: thoracic and lumbar spine normal to inspection Skin: General skin exam: no rashes or lesions noted Neuro: General: patient oriented x3, moves all extremities, no focal motor deficits and normal sensation to monofilament Cranial nerves: Yes Equal, round and reactive pupils present Cognition (Neuro): normal cognition Speech: No Abnormal speech present Gait exam (Neuro): Normal gait present Motor exam (neuro): 5/5 motor strength present throughout Deep tendon reflexes (DTR's): Right patellar reflex intensity grade: 2+ and Left patellar reflex intensity grade: 2+ Extrem: General: Yes normal to inspection Medical Decision Making Medical Decision Making MDM Narrative: 33 yo male with no known medical history presents to the ER with complaints of left lower back pain after lifting weights at the gym yesterday. Denies numbness or tingling in the legs or in the groin. No bowel or bladder incontinence. No fevers or chills. Has not tried any [id number] medications prior to arrival. Patient arrives ambulatory. Normal neuro exam with no red flag symptoms. TTP to lumbar soft tissue Likely strain Given toradol IM in ER with improvement Will send home with NSAIDs, muscle relaxants, lidoderm patches and f/u outpatient with PCP and strict return precautions. Differential Diagnosis Differential Diagnoses: The differential diagnosis associated with the presentation includes No reports of injury or trauma to suggest fracture No neurological deficits or red flag symptoms suggest cord compression, cauda equina, epidural abscess, malignancy Gradual onset so less likely ACS, AAA No urinary symptoms/flank or abdominal pain to suggest pyelo/renal colic Admission/Observation Consideration of admission/observation: Escalation of care including admission/observation considered No focal neuro deficits, red flag symptoms to suggest need for advanced imaging, NSY consultation and or transfer to tertiary care center Tests considered The following testing was considered but not selected: see discussion above Prescription Management I considered prescription management with: Pain Medication Social Determinants Patient?s care significantly limited by Social Determinants of Health including: Problems related to primary support group Discharge Plan Discharge Clinical Impression: Lumbar strain Patient Disposition: Home, Self-Care Instructions: Acute Low Back Pain (ED), Lower Back Exercises (ED) Additional Instructions: Heat to the area Gentle stretching No heavy lifting Return for incontinence of urine/stool, fever, numbness in the groin Prescriptions: New cyclobenzaprine 10 mg tablet 10 mg PO TID PRN (Reason: muscle spasm) Qty: 15 0RF naproxen 500 mg tablet 500 mg PO BID PRN (Reason: pain) Qty: 30 0RF lidocaine [Lidoderm] 5 % adhesive patch,medicated 1 patch topical DAILY Qty: 15 0RF Rx Instructions: leave on most painful area for up to 12 hrs No Action ondansetron 4 mg tablet,disintegrating 4 mg PO Q6H PRN (Reason: nausea and vomiting) Qty: 10 0RF doxycycline monohydrate 100 mg tablet 100 mg PO BID Qty: 20 0RF ibuprofen 800 mg tablet 800 mg PO Q8H PRN (Reason: pain) Qty: 20 0RF mupirocin 2 % ointment 1 appl topical TID Qty: 22 0RF acetaminophen [Tylenol Extra Strength] 500 mg tablet 500 mg PO Q6H PRN (Reason: fever or pain) Qty: 14 0RF lidocaine [Lidoderm] 5 % adhesive patch,medicated 1 patch topical DAILY MDD remove after 12 hours PRN (Reason: pain) Qty: 30 0RF Rx Instructions: leave on most painful area for up to 12 hrs naproxen 500 mg tablet 500 mg PO BID PRN (Reason: pain) 10 Days Qty: 20 0RF cyclobenzaprine 5 mg tablet 5 mg PO Q8H PRN (Reason: pain (scale score 7-10)) 5 Days Qty: 14 0RF Referrals: Physician,None [Primary Care Provider] - 1 week Print Language: Austrian
[2024-02-10] MEDS: Ketorolac Tromethamine 30 MG/ML VIAL IM (12:13)
[2024-02-10 12:33] VITALS: BP 106/34; PULSE 57; RESP 16; TEMP 36.6; O2SAT 98
== END 2024-02-10 12:33 | disposition home or self-care (01) ==
LOC: HO.ED 12:18
PROVIDERS: Emergency Provider Emergency Medicine
DX: S39.012A Strain of muscle, fascia and tendon of lower back, initial encounter (principal); X50.0XXA Overexertion from strenuous movement or load, initial encounter; X50.9XXA Other and unspecified overexertion or strenuous movements or postures, initial encounter; Y93.9 Activity, unspecified; Y92.9 Unspecified place or not applicable; Y99.9 Unspecified external cause status
CPT/HCPCS: 96372; 99283; 99284; J1885

== ENCOUNTER 2024-04-22 18:54 | Emergency (ER) | payer MEDICAID, SELFPAY ==
--- NOTE | ~2024-04-22 | XR_ITS ---
EXAMINATION: XR FINGER, RIGHT CLINICAL INFORMATION: Third digit pain. Crush injury. COMPARISON: None available. TECHNIQUE: 3 views of the right finger. FINDINGS: The bones and soft tissues are normal. No fracture. Alignment is anatomic. Joint spaces are maintained. XR/XR finger RT min 2V IMPRESSION: Normal finger radiographs.
[2024-04-22 19:42] VITALS: BP 116/54; PULSE 77; RESP 18; TEMP 36.6; O2SAT 97; BMI 24.5
--- NOTE | 2024-04-22 19:44 | ED.UPPEXIN ---
HPI - Extremity Injury (Upper) General Chief Complaint: Extremity Injury, Upper Stated Complaint: Right finger inj Related Data Previous Rx's ?Medication ?Instructions ?Recorded doxycycline monohydrate 100 mg 100 mg PO BID #20 tabs 07/12/21 tablet ibuprofen 800 mg tablet 800 mg PO Q8H PRN pain #20 tabs 07/12/21 mupirocin 2 % topical ointment 1 appl topical TID #22 grams 07/12/21 ondansetron 4 mg disintegrating 4 mg PO Q6H PRN nausea and 12/18/21 tablet vomiting #10 tabs acetaminophen 500 mg tablet 500 mg PO Q6H PRN fever or pain 10/20/23 (Tylenol Extra Strength) #14 tabs cyclobenzaprine 5 mg tablet 5 mg PO Q8H PRN pain (scale score 10/20/23 7-10) 5 days #14 tabs lidocaine 5 % topical patch 1 patch topical DAILY PRN pain #30 10/20/23 (Lidoderm) ea naproxen 500 mg tablet 500 mg PO BID PRN pain 10 days #20 10/20/23 tabs cyclobenzaprine 10 mg tablet 10 mg PO TID PRN muscle spasm #15 02/10/24 tabs lidocaine 5 % topical patch 1 patch topical DAILY #15 ea 02/10/24 (Lidoderm) naproxen 500 mg tablet 500 mg PO BID PRN pain #30 tabs 02/10/24 cefuroxime axetil 500 mg tablet 500 mg PO Q12H #14 tabs 04/25/24 Allergies Allergy/AdvReac Type Severity Reaction Status Date / Time No Known Allergies Allergy Verified 04/25/24 21:38 [No Known Allergies*] COUNTS INCLUDE 234 BEDS AT THE [facility] Social History Social History Alcohol intake: never Patient Tobacco Use Status: Never used Tobacco Advance Directives: No Advance Directives Information Provided: No Do you have a plan to hurt others: No Plan Physical Exam Vital Signs: Vital Signs: Last Vital Signs Temp 97.8 F 04/22/24 19:42 Pulse 77 04/22/24 19:42 Resp 18 04/22/24 19:42 BP 116/54 L 04/22/24 19:42 Pulse Ox 97 04/22/24 19:42 O2 Del Method Room Air 04/22/24 19:42 BMI result Body Mass Index 24.5 Course Course Course Narrative: This is an RME: Additional HPI, ROS, PE not included below will be deferred to primary provider. RME assessment and note performed by: Kelley Ospina PA-C This is a 33-year-old male who presents emergency department with complaints of right 3rd digit pain after closing a car door on it. Subungual hematoma as well as tenderness palpation along the PIP and DIP, unable to flex and extend at the PIP and DIP. Plan: X-ray, further ER evaluation needed. Reevaluation(s) Reevaluation #1: Patient left without completing treatment. Discharge Plan Discharge Clinical Impression: Contusion of finger Patient Disposition: Left W/O Completing Treatment Prescriptions: No Action ondansetron 4 mg tablet,disintegrating 4 mg PO Q6H PRN (Reason: nausea and vomiting) Qty: 10 0RF doxycycline monohydrate 100 mg tablet 100 mg PO BID Qty: 20 0RF ibuprofen 800 mg tablet 800 mg PO Q8H PRN (Reason: pain) Qty: 20 0RF mupirocin 2 % ointment 1 appl topical TID Qty: 22 0RF acetaminophen [Tylenol Extra Strength] 500 mg tablet 500 mg PO Q6H PRN (Reason: fever or pain) Qty: 14 0RF lidocaine [Lidoderm] 5 % adhesive patch,medicated 1 patch topical DAILY MDD remove after 12 hours PRN (Reason: pain) Qty: 30 0RF Rx Instructions: leave on most painful area for up to 12 hrs naproxen 500 mg tablet 500 mg PO BID PRN (Reason: pain) 10 Days Qty: 20 0RF cyclobenzaprine 5 mg tablet 5 mg PO Q8H PRN (Reason: pain (scale score 7-10)) 5 Days Qty: 14 0RF cyclobenzaprine 10 mg tablet 10 mg PO TID PRN (Reason: muscle spasm) Qty: 15 0RF naproxen 500 mg tablet 500 mg PO BID PRN (Reason: pain) Qty: 30 0RF lidocaine [Lidoderm] 5 % adhesive patch,medicated 1 patch topical DAILY Qty: 15 0RF Rx Instructions: leave on most painful area for up to 12 hrs cefuroxime axetil 500 mg tablet 500 mg PO Q12H Qty: 14 0RF Discharge Date/Time: 04/23/24 00:18
--- NOTE | 2024-04-23 00:18 | PC.NURSE ---
Called in [facility] with no answer
== END 2024-04-23 00:18 | disposition left against medical advice (07) ==
LOC: HO.ED 04-23 00:12
PROVIDERS: Emergency Provider Emergency Medicine
DX: S60.031A Contusion of right middle finger without damage to nail, initial encounter (principal); M79.644 Pain in right finger(s); Y29.XXXA Contact with blunt object, undetermined intent, initial encounter; Y93.89 Activity, other specified; Y92.810 Car as the place of occurrence of the external cause; Y99.8 Other external cause status
CPT/HCPCS: 73140; 99281; 99283

== ENCOUNTER 2024-04-25 21:26 | Emergency (ER) | payer MEDICAID, SELFPAY ==
--- NOTE | ~2024-04-25 | XR_ITS ---
EXAMINATION: XR FINGER, RIGHT CLINICAL INFORMATION: Crush injury. COMPARISON: Finger radiographs dated 04/22/2024. TECHNIQUE: 3 radiographs of the right third digit. FINDINGS: No fracture or dislocation. Joint spaces are maintained. The soft tissue overlying the third digit appears mildly swollen. No radiopaque foreign body. XR/XR finger RT min 2V IMPRESSION: No fracture or dislocation. Mild soft tissue swelling.
[2024-04-25 21:28] VITALS: BP 127/42; PULSE 65; RESP 17; TEMP 36.9; O2SAT 96; BMI 24.7
[2024-04-25 22:00] VITALS: BP 121/75; PULSE 64; RESP 19; TEMP 36.8; O2SAT 98
--- NOTE | 2024-04-25 22:02 | ED_ITS ---
HPI - Extremity Problem General Chief complaint: Extremity Injury, Upper Stated complaint: rt middle finger wound Time Seen by Provider: 04/25/24 21:43 Source: patient, RN notes reviewed, old records reviewed and vocational placement specialist Mode of arrival: ambulatory Limitations: language barrier History of Present Illness ED Provider: Trupti HPI Narrative: 33-year-old male presents for evaluation of right 3rd finger pain. Patient states that 3 days ago he accidentally slammed his right middle finger in a car door. He reports that when his finger was trapped he pulled the finger out quickly out of reaction. He has had increased pain and swelling to the area that extending down towards the hand He denies any open or bleeding He is having difficulty bending the finger due to the pain and swelling Related Data Previous Rx's ?Medication ?Instructions ?Recorded doxycycline monohydrate 100 mg 100 mg PO BID #20 tabs 07/12/21 tablet ibuprofen 800 mg tablet 800 mg PO Q8H PRN pain #20 tabs 07/12/21 mupirocin 2 % topical ointment 1 appl topical TID #22 grams 07/12/21 ondansetron 4 mg disintegrating 4 mg PO Q6H PRN nausea and 12/18/21 tablet vomiting #10 tabs acetaminophen 500 mg tablet 500 mg PO Q6H PRN fever or pain 10/20/23 (Tylenol Extra Strength) #14 tabs cyclobenzaprine 5 mg tablet 5 mg PO Q8H PRN pain (scale score 10/20/23 7-10) 5 days #14 tabs lidocaine 5 % topical patch 1 patch topical DAILY PRN pain #30 10/20/23 (Lidoderm) ea naproxen 500 mg tablet 500 mg PO BID PRN pain 10 days #20 10/20/23 tabs cyclobenzaprine 10 mg tablet 10 mg PO TID PRN muscle spasm #15 02/10/24 tabs lidocaine 5 % topical patch 1 patch topical DAILY #15 ea 02/10/24 (Lidoderm) naproxen 500 mg tablet 500 mg PO BID PRN pain #30 tabs 02/10/24 cefuroxime axetil 500 mg tablet 500 mg PO Q12H #14 tabs 04/25/24 Allergies Allergy/AdvReac Type Severity Reaction Status Date / Time No Known Allergies Allergy Verified 04/25/24 21:38 [No Known Allergies*] Review of Systems Constitutional: Constitutional: Denies body ache(s), Denies chills and Denies fever(s) Eyes: Eyes: Denies blurry vision Cardiovascular: Cardiovascular: Denies chest pain Musculoskeletal: Musculoskeletal: Reports arthralgias, Reports joint swelling and Reports limited range of motion Integumentary/Breasts: Skin/Breast: Denies rash [facility] Social History Social History Alcohol intake: never Patient Tobacco Use Status: Never used Tobacco Advance Directives: No Advance Directives Information Provided: No Do you have a plan to hurt others: No Plan Physical Exam Vital Signs: Vital Signs: Last Vital Signs Temp 98.5 F 04/25/24 21:28 Pulse 65 04/25/24 21:28 Resp 17 04/25/24 21:28 BP 127/42 L 04/25/24 21:28 Pulse Ox 96 04/25/24 21:28 O2 Del Method Room Air 04/25/24 21:28 BMI result Body Mass Index 24.7 Extrem: Other: There is edema to the right 3rd finger from the PIP joint distally. There is a subungual hematoma on right 3rd finger. There are no open wounds or lacerations. Patient has slightly reduced range of motion flexion of the right 3rd finger at the PIP and the IP joints. Medical Decision Making Medical Decision Making MDM Narrative: 33-year-old male presents for evaluation of right 3rd finger pain. He had a crush injury 3 days ago. Plan for x-ray to evaluate for fracture. There are no open wounds. However, he does have a subungual hematoma. I discussed risks and benefits of nail trephination. The patient would like to proceed with nail trephination. He will likely require oral antibiotics to prevent infection given the trauma and now the nail trephination with open wound Differential Diagnosis Differential Diagnoses: The differential diagnosis associated with the presentation includes Finger fracture Contusion Finger sprain Ligamentous injury Subungual hematoma Independent Interpretation I performed an independent interpretation of an: Plain X-Ray Interpretation: No obvious fracture of the right 3rd finger Radiology Impression Discussion of test interpretation with radiology: I have reviewed the radiologist's reading. Radiologist Impression: XR/XR finger RT min 2V IMPRESSION: No fracture or dislocation. Mild soft tissue swelling. Procedures Procedure Narrative Procedure Narrative: The right 3rd finger was identified, the fingernail was cleaned aseptically with alcohol pad. Using electrocautery, a small hole was created in the nail plate without any complications. There was immediate return of dark red blood. The patient tolerated the procedure well, there were no complications Discharge Plan Discharge Clinical Impression: Finger pain, Subungual hematoma of digit of hand Patient Disposition: Home, Self-Care Instructions: Finger Sprain (ED) Additional Instructions: Your x-ray did not show any fracture. You had a small hole burn into the fingernail to relieve pressure. Take the antibiotic twice daily for 7 days to prevent infection Follow-up with your primary doctor, return for new or worsening symptoms Prescriptions: New cefuroxime axetil 500 mg tablet 500 mg PO Q12H Qty: 14 0RF No Action ondansetron 4 mg tablet,disintegrating 4 mg PO Q6H PRN (Reason: nausea and vomiting) Qty: 10 0RF doxycycline monohydrate 100 mg tablet 100 mg PO BID Qty: 20 0RF ibuprofen 800 mg tablet 800 mg PO Q8H PRN (Reason: pain) Qty: 20 0RF mupirocin 2 % ointment 1 appl topical TID Qty: 22 0RF acetaminophen [Tylenol Extra Strength] 500 mg tablet 500 mg PO Q6H PRN (Reason: fever or pain) Qty: 14 0RF lidocaine [Lidoderm] 5 % adhesive patch,medicated 1 patch topical DAILY MDD remove after 12 hours PRN (Reason: pain) Qty: 30 0RF Rx Instructions: leave on most painful area for up to 12 hrs naproxen 500 mg tablet 500 mg PO BID PRN (Reason: pain) 10 Days Qty: 20 0RF cyclobenzaprine 5 mg tablet 5 mg PO Q8H PRN (Reason: pain (scale score 7-10)) 5 Days Qty: 14 0RF cyclobenzaprine 10 mg tablet 10 mg PO TID PRN (Reason: muscle spasm) Qty: 15 0RF naproxen 500 mg tablet 500 mg PO BID PRN (Reason: pain) Qty: 30 0RF lidocaine [Lidoderm] 5 % adhesive patch,medicated 1 patch topical DAILY Qty: 15 0RF Rx Instructions: leave on most painful area for up to 12 hrs Print Language: Stateless
[2024-04-25] MEDS: oxyCODONE HCl Immed Release 5 MG TABLET PO (22:57)
[2024-04-25 23:04] VITALS: BP 121/75; PULSE 64; RESP 19; TEMP 36.8; O2SAT 98
== END 2024-04-25 23:05 | disposition home or self-care (01) ==
PROVIDERS: Emergency Provider Emergency Medicine
DX: M79.644 Pain in right finger(s) (principal); S60.131A Contusion of right middle finger with damage to nail, initial encounter; W23.1XXA Caught, crushed, jammed, or pinched between stationary objects, initial encounter; Y93.89 Activity, other specified; Y92.810 Car as the place of occurrence of the external cause; Y99.9 Unspecified external cause status
CPT/HCPCS: 11740; 73140; 99283

== ENCOUNTER 2024-08-25 20:39 | Emergency (ER) | payer MEDICAID, SELFPAY ==
--- NOTE | ~2024-08-25 | XR_ITS ---
EXAMINATION: XR HAND, LEFT CLINICAL INFORMATION: pain/swelling s/p injury COMPARISON: None available. TECHNIQUE: PA, lateral, and oblique views of the left hand. FINDINGS: No acute fracture or dislocation. Joint spaces are maintained. There is a focal osseous lesion involving the proximal phalanx of the fifth finger. Along the distal shaft of the radial side of the bone there is a lesion that is contiguous with the periosteum which is ossified and measures about 5 mm in length by 2 mm in depth. This has a benign radiographic appearance with no evidence of bone destruction. This may be posttraumatic. Patient had injury to this finger June 30, 2016. The osseous lesions seen on today's study was not present on the prior exam. Previously seen avulsion fracture of the middle phalanx at the volar side of the bone at the PIP joint on exam of June 30, 2016 has healed. XR/XR hand LT min 3V IMPRESSION: 1. No acute fracture or dislocation. 2. Focal osseous lesion involving the proximal phalanx of the fifth finger. This has a benign radiographic appearance with no evidence of bone destruction. This may be posttraumatic. Electronically signed by: Edu Pearce MD 08/25/2024 11:04 PM [facility]
[2024-08-25 20:55] VITALS: BP 123/67; PULSE 69; RESP 16; TEMP 36.6; O2SAT 99; BMI 24.5
--- NOTE | 2024-08-25 22:50 | ED.EXTPRO ---
HPI - Extremity Problem General Chief complaint: Extremity Problem Stated complaint: L pinky injury Time Seen by Provider: 08/25/24 21:31 Source: patient Mode of arrival: ambulatory Limitations: no limitations History of Present Illness ED Provider: Dr. Hetal Yuan HPI Narrative: Patient comes to the emergency room complaining of pain in his 5th digit of the left hand. Patient states that approximately 4 hours ago, patient was playing basketball, when he tried to catch a ball, he slammed his pinky finger against the ball. Patient complaining of pain swelling and deformity. Patient denies taking any medication prior to arrival. Patient states that 3 weeks ago, the same thing happen playing basketball in the same finger but it was not as painful. Patient denies any other injuries Related Data Previous Rx's ?Medication ?Instructions ?Recorded doxycycline monohydrate 100 mg 100 mg PO BID #20 tabs 07/12/21 tablet ibuprofen 800 mg tablet 800 mg PO Q8H PRN pain #20 tabs 07/12/21 mupirocin 2 % topical ointment 1 appl topical TID #22 grams 07/12/21 ondansetron 4 mg disintegrating 4 mg PO Q6H PRN nausea and 12/18/21 tablet vomiting #10 tabs acetaminophen 500 mg tablet 500 mg PO Q6H PRN fever or pain 10/20/23 (Tylenol Extra Strength) #14 tabs cyclobenzaprine 5 mg tablet 5 mg PO Q8H PRN pain (scale score 10/20/23 7-10) 5 days #14 tabs lidocaine 5 % topical patch 1 patch topical DAILY PRN pain #30 10/20/23 (Lidoderm) ea naproxen 500 mg tablet 500 mg PO BID PRN pain 10 days #20 10/20/23 tabs cyclobenzaprine 10 mg tablet 10 mg PO TID PRN muscle spasm #15 02/10/24 tabs lidocaine 5 % topical patch 1 patch topical DAILY #15 ea 02/10/24 (Lidoderm) naproxen 500 mg tablet 500 mg PO BID PRN pain #30 tabs 02/10/24 cefuroxime axetil 500 mg tablet 500 mg PO Q12H #14 tabs 04/25/24 acetaminophen 500 mg capsule 500 mg PO Q6H PRN pain #14 caps 08/25/24 ibuprofen 600 mg tablet 600 mg PO Q8H PRN pain #14 tabs 08/25/24 Allergies Allergy/AdvReac Type Severity Reaction Status Date / Time No Known Allergies Allergy Verified 08/25/24 20:58 [No Known Allergies*] Review of Systems Review of Systems: Constitutional : No Weight loss, No Fever, No Chills, No Night Sweats, No Fatigue, No Malaise ENT/Mouth : No Hearing loss, No Ear Pain, No Nasal Congestion, No Sinus Pain, No Hoarseness, No sore throat, No Rhinorrhea, No Swallowing Difficulty Eyes: No Eye Pain, No Swelling, No Redness, No Foreign Body, No Discharge, No Vision Changes Cardiovascular : No Chest Pain, No SOB, No Dyspnea on Exertion, No Orthopnea, No Edema, No Palpitations Respiratory : No Cough, No Sputum, No Wheezing, No Smoke Exposure, No Dyspnea Gastrointestinal : No Nausea, No Vomiting, No Diarrhea, No Constipation, No abdominal Pain, No Hematochezia, No Melena Genitourinary : no irregular bleeding, No Dysuria, No Urinary Frequency, No Hematuria, No Urinary Incontinence, No Urgency, No Flank Pain, No Urinary Flow Changes, No Hesitancy Musculoskeletal : Complaining of pain in the 5th digit of the left hand, No joint pain, No Myalgias, No Joint Swelling Skin : No Skin Lesions, No rash Neuro : No Weakness, No Numbness, No Paresthesias, No Loss of Consciousness, No Dizziness, No Headache Psych : No Anxiety/Panic, No Depression, No SI/HI/AH/VH, No Social Issues, Heme/Lymph: No Bruising, No Bleeding,No Lymphadenopathy Endocrine : No Polyuria, No Polydipsia, No Temperature Intolerance [facility] Social History Social History Alcohol intake: never Patient Tobacco Use Status: Never used Tobacco Smoked in Last 30 Days: No Use of substances other than those prescribed or required for medical reasons: No Advance Directives: No Advance Directives Information Provided: No Physical Exam Vital Signs: Vital Signs: Last Vital Signs Temp 97.8 F 08/25/24 20:55 Pulse 69 08/25/24 20:55 Resp 16 08/25/24 20:55 BP 123/67 08/25/24 20:55 Pulse Ox 99 08/25/24 20:55 O2 Del Method Room Air 08/25/24 20:55 BMI result Body Mass Index 24.5 Const: Other: Appearance: Alert. Oriented X3. No acute distress. Eyes: Pupils equal, round and reactive to light. ENT: Pharynx normal. Neck: Normal inspection. Neck supple. No lymph nodes noted. No crepitus CVS: Normal heart rate and rhythm. Pulses normal. Normal S1 and S2 Respiratory: No respiratory distress. Breath sounds normal. No Wheezing. No rales Abdomen: Soft and nontender. No rigidity. No distention. Skin: Skin warm and dry. Normal skin color. Normal skin turgor. Extremities: No lower extremity edema. No Lacerations. No Rash. Fifth digit of the left hand seems swollen, ecchymosis, mild deformity. Neuro: Oriented X 3. No motor deficit. No sensory deficit. Moving all extremities. No slurred speech. CN 2 through 12 grossly intact Psych: calm, cooperative, normal affect Medications Administered Discontinued Medications Generic Name Dose Route Start Last Admin Trade Name Freq PRN Reason Stop Dose Admin Ibuprofen 600 mg 08/25/24 22:50 08/25/24 22:57 Ibuprofen 600 Mg Tablet PO 08/25/24 22:51 600 mg ONCE ONE Administration Medical Decision Making Medical Decision Making [facility] Narrative: Patient received a dose of ibuprofen -my interpretation of x-ray, possible buckle fracture, likely partial subluxation of the PIP of the 5th digit left hand, radiology report pending -radiology report, no acute findings, chronic changes. -patient's fingers were malissa-taped Independent Interpretation I performed an independent interpretation of an: Plain X-Ray Radiology Impression Discussion of test interpretation with radiology: I have reviewed the radiologist's reading. Radiologist Impression: There is a focal osseous lesion involving the proximal phalanx of the fifth finger. Along the distal shaft of the radial side of the bone there is a lesion that is contiguous with the periosteum which is ossified and measures about 5 mm in length by 2 mm in depth. This has a benign radiographic appearance with no evidence of bone destruction. This may be posttraumatic. Patient had injury to this finger June 30, 2016. The osseous lesions seen on today's study was not present on the prior exam. Previously seen avulsion fracture of the middle phalanx at the volar side of the bone at the PIP joint on exam of June 30, 2016 has healed. XR/XR hand LT min 3V IMPRESSION: 1. No acute fracture or dislocation. 2. Focal osseous lesion involving the proximal phalanx of the fifth finger. This has a benign radiographic appearance with no evidence of bone destruction. This may be posttraumatic. Discharge Plan Discharge Clinical Impression: Contusion of finger Patient Disposition: Home, Self-Care Instructions: Contusion in Adults (ED) Additional Instructions: Please follow-up with your primary care physician tomorrow. If you have any worsening or new symptoms, please return to the emergency room or call 911 Prescriptions: New acetaminophen 500 mg capsule 500 mg PO Q6H PRN (Reason: pain) Qty: 14 0RF ibuprofen 600 mg tablet 600 mg PO Q8H PRN (Reason: pain) Qty: 14 0RF No Action ondansetron 4 mg tablet,disintegrating 4 mg PO Q6H PRN (Reason: nausea and vomiting) Qty: 10 0RF doxycycline monohydrate 100 mg tablet 100 mg PO BID Qty: 20 0RF ibuprofen 800 mg tablet 800 mg PO Q8H PRN (Reason: pain) Qty: 20 0RF mupirocin 2 % ointment 1 appl topical TID Qty: 22 0RF acetaminophen [Tylenol Extra Strength] 500 mg tablet 500 mg PO Q6H PRN (Reason: fever or pain) Qty: 14 0RF lidocaine [Lidoderm] 5 % adhesive patch,medicated 1 patch topical DAILY MDD remove after 12 hours PRN (Reason: pain) Qty: 30 0RF Rx Instructions: leave on most painful area for up to 12 hrs naproxen 500 mg tablet 500 mg PO BID PRN (Reason: pain) 10 Days Qty: 20 0RF cyclobenzaprine 5 mg tablet 5 mg PO Q8H PRN (Reason: pain (scale score 7-10)) 5 Days Qty: 14 0RF cyclobenzaprine 10 mg tablet 10 mg PO TID PRN (Reason: muscle spasm) Qty: 15 0RF naproxen 500 mg tablet 500 mg PO BID PRN (Reason: pain) Qty: 30 0RF lidocaine [Lidoderm] 5 % adhesive patch,medicated 1 patch topical DAILY Qty: 15 0RF Rx Instructions: leave on most painful area for up to 12 hrs cefuroxime axetil 500 mg tablet 500 mg PO Q12H Qty: 14 0RF Referrals: Meuse,Ta-Nya, PA-C [Physician Bowling Floor Desk Clerk] - 08/30/24 Stand Alone Forms: Work/School Release Print Language: Honduran
[2024-08-25] MEDS: Ibuprofen 600 MG TABLET PO (22:57)
[2024-08-26 00:53] VITALS: BP 112/72; PULSE 65; RESP 16; TEMP 36.6; O2SAT 99
== END 2024-08-25 23:55 | disposition home or self-care (01) ==
PROVIDERS: Emergency Provider Emergency Medicine
DX: S60.052A Contusion of left little finger without damage to nail, initial encounter (principal); Y93.67 Activity, basketball; Y92.310 Basketball court as the place of occurrence of the external cause; Y99.8 Other external cause status
CPT/HCPCS: 73130; 99283; 99284

== ENCOUNTER 2024-10-09 14:13 | Emergency (ER) | payer MEDICAID, SELFPAY ==
[2024-10-09 14:50] VITALS: BP 112/59; PULSE 81; RESP 18; TEMP 37.6; O2SAT 99; BMI 22.1
--- NOTE | 2024-10-09 14:51 | ED_ITS ---
HPI - General Adult General Chief complaint: Nausea/Vomiting/Diarrhea Stated complaint: Not Feeling Well Related Data Previous Rx's ?Medication ?Instructions ?Recorded doxycycline monohydrate 100 mg 100 mg PO BID #20 tabs 07/12/21 tablet ibuprofen 800 mg tablet 800 mg PO Q8H PRN pain #20 tabs 07/12/21 mupirocin 2 % topical ointment 1 appl topical TID #22 grams 07/12/21 ondansetron 4 mg disintegrating 4 mg PO Q6H PRN nausea and 12/18/21 tablet vomiting #10 tabs acetaminophen 500 mg tablet 500 mg PO Q6H PRN fever or pain 10/20/23 (Tylenol Extra Strength) #14 tabs cyclobenzaprine 5 mg tablet 5 mg PO Q8H PRN pain (scale score 10/20/23 7-10) 5 days #14 tabs lidocaine 5 % topical patch 1 patch topical DAILY PRN pain #30 10/20/23 (Lidoderm) ea naproxen 500 mg tablet 500 mg PO BID PRN pain 10 days #20 10/20/23 tabs cyclobenzaprine 10 mg tablet 10 mg PO TID PRN muscle spasm #15 02/10/24 tabs lidocaine 5 % topical patch 1 patch topical DAILY #15 ea 02/10/24 (Lidoderm) naproxen 500 mg tablet 500 mg PO BID PRN pain #30 tabs 02/10/24 cefuroxime axetil 500 mg tablet 500 mg PO Q12H #14 tabs 04/25/24 acetaminophen 500 mg capsule 500 mg PO Q6H PRN pain #14 caps 08/25/24 ibuprofen 600 mg tablet 600 mg PO Q8H PRN pain #14 tabs 08/25/24 Allergies Allergy/AdvReac Type Severity Reaction Status Date / Time No Known Allergies Allergy Verified 10/09/24 14:52 [No Known Allergies*] [facility] Social History Social History Alcohol intake: never Patient Tobacco Use Status: Never used Tobacco Advance Directives: No Advance Directives Information Provided: No Do you have a plan to hurt others: No Plan Physical Exam ED Vital Signs: BMI result Body Mass Index 22.1 Course Course Course Narrative: RME, this is a rapid medical exam performed by Sunil Lyles please refer to [facility] provider for complete H&P- 34-year-old primarily Panamanian-speaking male presents for evaluation of body aches, fevers and vomiting that started at 2:00 a.m. this morning. Plan for viral swabs. Discharge Plan Discharge Clinical Impression: Vomiting Patient Disposition: Left W/O Completing Treatment Prescriptions: No Action ondansetron 4 mg tablet,disintegrating 4 mg PO Q6H PRN (Reason: nausea and vomiting) Qty: 10 0RF doxycycline monohydrate 100 mg tablet 100 mg PO BID Qty: 20 0RF ibuprofen 800 mg tablet 800 mg PO Q8H PRN (Reason: pain) Qty: 20 0RF mupirocin 2 % ointment 1 appl topical TID Qty: 22 0RF acetaminophen [Tylenol Extra Strength] 500 mg tablet 500 mg PO Q6H PRN (Reason: fever or pain) Qty: 14 0RF lidocaine [Lidoderm] 5 % adhesive patch,medicated 1 patch topical DAILY MDD remove after 12 hours PRN (Reason: pain) Qty: 30 0RF Rx Instructions: leave on most painful area for up to 12 hrs naproxen 500 mg tablet 500 mg PO BID PRN (Reason: pain) 10 Days Qty: 20 0RF cyclobenzaprine 5 mg tablet 5 mg PO Q8H PRN (Reason: pain (scale score 7-10)) 5 Days Qty: 14 0RF cyclobenzaprine 10 mg tablet 10 mg PO TID PRN (Reason: muscle spasm) Qty: 15 0RF naproxen 500 mg tablet 500 mg PO BID PRN (Reason: pain) Qty: 30 0RF lidocaine [Lidoderm] 5 % adhesive patch,medicated 1 patch topical DAILY Qty: 15 0RF Rx Instructions: leave on most painful area for up to 12 hrs cefuroxime axetil 500 mg tablet 500 mg PO Q12H Qty: 14 0RF acetaminophen 500 mg capsule 500 mg PO Q6H PRN (Reason: pain) Qty: 14 0RF ibuprofen 600 mg tablet 600 mg PO Q8H PRN (Reason: pain) Qty: 14 0RF Discharge Date/Time: 10/09/24 18:43
== END 2024-10-09 18:43 | disposition left against medical advice (07) ==
PROVIDERS: Emergency Provider Emergency Medicine
DX: R11.10 Vomiting, unspecified (principal); R50.9 Fever, unspecified
CPT/HCPCS: 99281

== ENCOUNTER 2024-12-09 06:39 | Emergency (ER) | payer MEDICAID, SELFPAY ==
--- NOTE | ~2024-12-09 | XR_ITS ---
CLINICAL HISTORY: back pain ; 3 views lumbar spine Comparison: CR/SR - XR LUMBAR SPINE 2-3V - 10/20/23 13:28 EST Findings: Slight rightward curvature of the lumbar spine, possibly positional. No acute fractures or dislocation. Mild multilevel disc height loss with reactive endplate changes. No significant facet hypertrophy. IMPRESSION: Mild rightward curvature which could be positional. Mild disc space loss. This document has been electronically signed by: Livia Vicente MD on 12/09/2024 07:43:30
[2024-12-09 06:44] VITALS: BP 113/66; PULSE 60; RESP 18; TEMP 36.4; O2SAT 98; BMI 25.1
--- NOTE | 2024-12-09 07:23 | ED_ITS ---
HPI - Back Pain/Injury General Chief Complaint: Back Pain/Injury Stated Complaint: back pain Time Seen by Provider: 12/09/24 07:23 History of Present Illness HPI Narrative: patient is a 34-year-old male presents today after carrying heavy weights. Patient complaining of pain in his lower back area. There is no bowel urinary incontinence. There is no focal weakness. There was no trauma. Patient is from home. Happened after lifting weights using his legs. Pain is made worse with specific movements. Related Data Previous Rx's ?Medication ?Instructions ?Recorded doxycycline monohydrate 100 mg 100 mg PO BID #20 tabs 07/12/21 tablet ibuprofen 800 mg tablet 800 mg PO Q8H PRN pain #20 tabs 07/12/21 mupirocin 2 % topical ointment 1 appl topical TID #22 grams 07/12/21 ondansetron 4 mg disintegrating 4 mg PO Q6H PRN nausea and 12/18/21 tablet vomiting #10 tabs acetaminophen 500 mg tablet 500 mg PO Q6H PRN fever or pain 10/20/23 (Tylenol Extra Strength) #14 tabs cyclobenzaprine 5 mg tablet 5 mg PO Q8H PRN pain (scale score 10/20/23 7-10) 5 days #14 tabs lidocaine 5 % topical patch 1 patch topical DAILY PRN pain #30 10/20/23 (Lidoderm) ea naproxen 500 mg tablet 500 mg PO BID PRN pain 10 days #20 10/20/23 tabs cyclobenzaprine 10 mg tablet 10 mg PO TID PRN muscle spasm #15 02/10/24 tabs lidocaine 5 % topical patch 1 patch topical DAILY #15 ea 02/10/24 (Lidoderm) naproxen 500 mg tablet 500 mg PO BID PRN pain #30 tabs 02/10/24 cefuroxime axetil 500 mg tablet 500 mg PO Q12H #14 tabs 04/25/24 acetaminophen 500 mg capsule 500 mg PO Q6H PRN pain #14 caps 08/25/24 ibuprofen 600 mg tablet 600 mg PO Q8H PRN pain #14 tabs 08/25/24 cyclobenzaprine 10 mg tablet 10 mg PO TID PRN pain #14 tabs 12/09/24 ibuprofen 400 mg tablet 400 mg PO Q6H PRN pain #20 tabs 12/09/24 Allergies Allergy/AdvReac Type Severity Reaction Status Date / Time No Known Allergies Allergy Verified 12/09/24 06:48 [No Known Allergies*] Review of Systems Review of Systems: Positive back pain Yes all other systems are reviewed and are negative [facility] Past Medical History Attestation statement: The following information was validated with the patient. Social History Social History Alcohol intake: never Patient Tobacco Use Status: Never used Tobacco Advance Directives: No Advance Directives Information Provided: Yes Do you have a plan to hurt others: No Plan Physical Exam Vital Signs: Vital Signs: Last Vital Signs Temp 97.5 F 12/09/24 06:44 Pulse 60 12/09/24 06:44 Resp 18 12/09/24 06:44 BP 113/66 12/09/24 06:44 Pulse Ox 98 12/09/24 06:44 O2 Del Method Room Air 12/09/24 06:44 BMI result Body Mass Index 25.1 Appearance: Alert. Oriented X3. No acute distress. Eyes: Pupils equal, round and reactive to light. ENT: Pharynx normal. Neck: Normal inspection. Neck supple. No lymph nodes noted. No crepitus CVS: Normal heart rate and rhythm. Pulses normal. Normal S1 and S2 Respiratory: No respiratory distress. Breath sounds normal. No Wheezing. No rales Abdomen: Soft and nontender. No rigidity. No distention. good BS x4 Skin: Skin warm and dry. Normal skin color. Normal skin turgor. Extremities: No lower extremity edema. Neurovascular intact to all extremities. No Lacerations. No Rash Neuro: Oriented X 3. No motor deficit. No sensory deficit. Moving all extermities. No slurred speech. Good sensation in bilateral lower extremity. Ambulates with a normal gait. Negative straight leg raise test. Equal reflexes at patella bilaterally Medical Decision Making Medical Decision Making MDM Narrative: x-ray of the low back was ordered prior to me Signing up for the case. The x- ray by my interpretation showed no acute fracture. Patient has no bowel urinary incontinence no signs of cauda equinus syndrome. No fever no chills. Pain worse with movement consistent with having strained. Will discharge home with additional pain medication and muscle relaxant. Close follow-up on an outpatient basis. A few days off from work. Differential Diagnosis Differential Diagnoses: The differential diagnosis associated with the presentation includes Admission/Observation Consideration of admission/observation: Escalation of care including admission /observation considered Lab Data MDM Lab Attestation statement: I reviewed the patient's lab results. Independent Interpretation I performed an independent interpretation of an: Plain X-Ray ( No acute fracture noted) Radiology Impression Discussion of test interpretation with radiology: I have reviewed the radiologist's reading. Prescription Management I considered prescription management with: Antibiotic ( no need for antibiotic) Social Determinants Patient?s care significantly limited by Social Determinants of Health including: Problems related to primary support group Discharge Plan Discharge Clinical Impression: Strain of lumbar region Patient Disposition: Home, Self-Care Instructions: Back Pain (ED) Prescriptions: New cyclobenzaprine 10 mg tablet 10 mg PO TID PRN (Reason: pain) Qty: 14 0RF ibuprofen 400 mg tablet 400 mg PO Q6H PRN (Reason: pain) Qty: 20 0RF No Action ondansetron 4 mg tablet,disintegrating 4 mg PO Q6H PRN (Reason: nausea and vomiting) Qty: 10 0RF doxycycline monohydrate 100 mg tablet 100 mg PO BID Qty: 20 0RF ibuprofen 800 mg tablet 800 mg PO Q8H PRN (Reason: pain) Qty: 20 0RF mupirocin 2 % ointment 1 appl topical TID Qty: 22 0RF acetaminophen [Tylenol Extra Strength] 500 mg tablet 500 mg PO Q6H PRN (Reason: fever or pain) Qty: 14 0RF lidocaine [Lidoderm] 5 % adhesive patch,medicated 1 patch topical DAILY MDD remove after 12 hours PRN (Reason: pain) Qty: 30 0RF Rx Instructions: leave on most painful area for up to 12 hrs naproxen 500 mg tablet 500 mg PO BID PRN (Reason: pain) 10 Days Qty: 20 0RF cyclobenzaprine 5 mg tablet 5 mg PO Q8H PRN (Reason: pain (scale score 7-10)) 5 Days Qty: 14 0RF cyclobenzaprine 10 mg tablet 10 mg PO TID PRN (Reason: muscle spasm) Qty: 15 0RF naproxen 500 mg tablet 500 mg PO BID PRN (Reason: pain) Qty: 30 0RF lidocaine [Lidoderm] 5 % adhesive patch,medicated 1 patch topical DAILY Qty: 15 0RF Rx Instructions: leave on most painful area for up to 12 hrs cefuroxime axetil 500 mg tablet 500 mg PO Q12H Qty: 14 0RF acetaminophen 500 mg capsule 500 mg PO Q6H PRN (Reason: pain) Qty: 14 0RF ibuprofen 600 mg tablet 600 mg PO Q8H PRN (Reason: pain) Qty: 14 0RF Referrals: [facility] [Primary Care Provider] - 12/11/24 Stand Alone Forms: Work/School Release Print Language: Setswana
[2024-12-09 08:09] VITALS: BP 113/66; PULSE 60; RESP 18; TEMP 36.4; O2SAT 98
== END 2024-12-09 08:38 | disposition home or self-care (01) ==
PROVIDERS: Emergency Provider Emergency Medicine Emergency Medical Services
DX: S39.012A Strain of muscle, fascia and tendon of lower back, initial encounter (principal); X50.0XXA Overexertion from strenuous movement or load, initial encounter; Y93.9 Activity, unspecified; Y92.39 Other specified sports and athletic area as the place of occurrence of the external cause; Y99.8 Other external cause status
CPT/HCPCS: 72100; 99283; 99284

== ENCOUNTER → 2024-12-09 07:10 | Outpatient (BNV) | payer MEDICAID, SELFPAY | PROVIDERS: Emergency Provider Emergency Medicine Emergency Medical Services; Visit Provider Radiology Diagnostic Radiology | DX: M54.50 Low back pain, unspecified (principal) | CPT/HCPCS: 72100 ==

== ENCOUNTER 2025-06-07 00:35 | Emergency (ER) | payer SELFPAY ==
--- NOTE | ~2025-06-07 | CT_ITS ---
CLINICAL HISTORY: Left mandible swelling --- Additional Notes or Special Instructions: Likely dental abscess CT maxillofacial with contrast Comparison: None provided Findings: No acute fractures. Temporomandibular joints are intact. There is a small amount of periapical lucency around the left mandibular 1st molar. There is a large dental kendall within the left mandibular 2nd molar. Paranasal sinuses and mastoid air cells clear. Unremarkable orbital contents. Visualized intracranial contents are within normal limits. Extensive soft tissue swelling of the lower left cheek over the left mandible. No definite subperiosteal abscess, however there is a suspicious area at series 7, image 80 along the lateral inferior left mandible suspicious for phlegmon or early subperiosteal abscess. IMPRESSION: Soft tissue swelling of the lower left cheek with possible subperiosteal abscess or phlegmon along the inferior lateral left mandible. Adjacent dental disease of the mandibular molars. This document has been electronically signed by: Farhan Resendiz MD on 06/07/2025 02:13:54
--- NOTE | 2025-06-07 00:38 | ED.GENADULT ---
[facility] - General Adult General Chief complaint: Skin/Abscess/Foreign Body Stated complaint: Left jaw pain Time Seen by Provider: 06/07/25 00:37 Source: patient Mode of arrival: ambulatory Limitations: language barrier History of Present Illness ED Provider: Dr. Odom HPI narrative: This is a 34-year-old male presented hospital today for a left lower jaw swelling. Patient stated that this has been going for 2 days now. He has been trying to take ampicillin for antibiotic and Advil without any relief. Denies any fever denies any drainage from his left lower jaw. Related Data Previous Rx's ?Medication ?Instructions ?Recorded doxycycline monohydrate 100 mg 100 mg PO BID #20 tabs 07/12/21 tablet ibuprofen 800 mg tablet 800 mg PO Q8H PRN pain #20 tabs 07/12/21 mupirocin 2 % topical ointment 1 appl topical TID #22 grams 07/12/21 ondansetron 4 mg disintegrating 4 mg PO Q6H PRN nausea and 12/18/21 tablet vomiting #10 tabs acetaminophen 500 mg tablet 500 mg PO Q6H PRN fever or pain 10/20/23 (Tylenol Extra Strength) #14 tabs cyclobenzaprine 5 mg tablet 5 mg PO Q8H PRN pain (scale score 10/20/23 7-10) 5 days #14 tabs lidocaine 5 % topical patch 1 patch topical DAILY PRN pain #30 10/20/23 (Lidoderm) ea naproxen 500 mg tablet 500 mg PO BID PRN pain 10 days #20 10/20/23 tabs cyclobenzaprine 10 mg tablet 10 mg PO TID PRN muscle spasm #15 02/10/24 tabs lidocaine 5 % topical patch 1 patch topical DAILY #15 ea 02/10/24 (Lidoderm) naproxen 500 mg tablet 500 mg PO BID PRN pain #30 tabs 02/10/24 cefuroxime axetil 500 mg tablet 500 mg PO Q12H #14 tabs 04/25/24 acetaminophen 500 mg capsule 500 mg PO Q6H PRN pain #14 caps 08/25/24 ibuprofen 600 mg tablet 600 mg PO Q8H PRN pain #14 tabs 08/25/24 cyclobenzaprine 10 mg tablet 10 mg PO TID PRN pain #14 tabs 12/09/24 ibuprofen 400 mg tablet 400 mg PO Q6H PRN pain #20 tabs 12/09/24 amoxicillin 875 mg-potassium 1 tab PO Q12H 7 days #14 tabs 06/07/25 clavulanate 125 mg tablet Allergies Allergy/AdvReac Type Severity Reaction Status Date / Time No Known Allergies (No Known Allergy Verified 06/07/25 00:44 Allergies*) Review of Systems Review of Systems: Pertinent review of systems as mentioned in HPI. All other system otherwise negative. [facility] Past Medical History [facility] Narrative: Medical history as mentioned in HPI Social History Social History Alcohol intake: current Alcohol intake frequency: holidays/special occasions only Patient Tobacco Use Status: Never used Tobacco Substance Use Type: Marijuana Advance Directives: No Advance Directives Information Provided: No Physical Exam ED Exam Exam: General: Pleasant, no distress, interacting appropriately Head: Normacephalic, atraumatic ENT: oral mucosa moist, swollen of the left anterior mandible, identify some swelling inside his gums consistent with possible dental abscess. Skin: Warm and dry Psychiatric: Appropriate mood and thoughts Vital Signs: Vital Signs - 24 hr 06/07/25 00:40 Temperature 98.4 F Pulse Rate 56 Respiratory Rate 18 Blood Pressure 144/96 H Pulse Oximetry 99 Oxygen Delivery Method Room Air BMI result Body Mass Index 21.5 Medications Administered Discontinued Medications Generic Name Dose Route Start Last Admin Trade Name Freq PRN Reason Stop Dose Admin Iohexol 85 ml 06/07/25 01:42 06/07/25 01:42 Iohexol 350 Mg/Ml 100 Ml Infus..Btl IV 06/07/25 01:43 85 ml ONCE ONE Administration Medical Decision Making Medical Decision Making [facility] Narrative: 34-year-old male presented hospital today for increased swelling of his left jaw. CT imaging will be performed to evaluate for abscess. We will evaluate the size of his abscess at this time. I have high suspicion for dental abscess for the patient. Patient does not appear to be acutely toxic. Patient's lab work did show slight leukocytosis at 13.6. Chemistries unremarkable. CT imaging did not show any signs of abscess. Did show possible developing phlegmon. We will plan to discharge patient on course of Augmentin to take for his antibiotic. Differential Diagnosis Differential Diagnoses: The differential diagnosis associated with the presentation includes Dental infection, dental abscess, Lab Data [facility] Lab Attestation statement: I reviewed the patient's lab results. Independent Interpretation I performed an independent interpretation of an: CT Scan Radiology Impression Discussion of test interpretation with radiology: I have reviewed the radiologist's reading. Prescription Management I considered prescription management with: Antibiotic Discharge Plan Discharge Clinical Impression: Dental infection Patient Disposition: Home, Self-Care Prescriptions: New amoxicillin-pot clavulanate 875-125 mg tablet 1 tab PO Q12H 7 Days Qty: 14 0RF No Action ondansetron 4 mg tablet,disintegrating 4 mg PO Q6H PRN (Reason: nausea and vomiting) Qty: 10 0RF doxycycline monohydrate 100 mg tablet 100 mg PO BID Qty: 20 0RF ibuprofen 800 mg tablet 800 mg PO Q8H PRN (Reason: pain) Qty: 20 0RF mupirocin 2 % ointment 1 appl topical TID Qty: 22 0RF acetaminophen [Tylenol Extra Strength] 500 mg tablet 500 mg PO Q6H PRN (Reason: fever or pain) Qty: 14 0RF lidocaine [Lidoderm] 5 % adhesive patch,medicated 1 patch topical DAILY MDD remove after 12 hours PRN (Reason: pain) Qty: 30 0RF Rx Instructions: leave on most painful area for up to 12 hrs naproxen 500 mg tablet 500 mg PO BID PRN (Reason: pain) 10 Days Qty: 20 0RF cyclobenzaprine 5 mg tablet 5 mg PO Q8H PRN (Reason: pain (scale score 7-10)) 5 Days Qty: 14 0RF cyclobenzaprine 10 mg tablet 10 mg PO TID PRN (Reason: muscle spasm) Qty: 15 0RF naproxen 500 mg tablet 500 mg PO BID PRN (Reason: pain) Qty: 30 0RF lidocaine [Lidoderm] 5 % adhesive patch,medicated 1 patch topical DAILY Qty: 15 0RF Rx Instructions: leave on most painful area for up to 12 hrs cefuroxime axetil 500 mg tablet 500 mg PO Q12H Qty: 14 0RF acetaminophen 500 mg capsule 500 mg PO Q6H PRN (Reason: pain) Qty: 14 0RF ibuprofen 600 mg tablet 600 mg PO Q8H PRN (Reason: pain) Qty: 14 0RF cyclobenzaprine 10 mg tablet 10 mg PO TID PRN (Reason: pain) Qty: 14 0RF ibuprofen 400 mg tablet 400 mg PO Q6H PRN (Reason: pain) Qty: 20 0RF Referrals: [facility] [Outside] Print Language: Japanese
[2025-06-07 00:40] VITALS: BP 144/96; PULSE 56; RESP 18; TEMP 36.9; O2SAT 99; BMI 21.5
[2025-06-07] MEDS: iohexoL 350 MG/ML 100 ML INFUS..BTL 85 ML IV (01:42)
[2025-06-07 02:30] VITALS: BP 146/85; PULSE 56; RESP 16; TEMP 36.8; O2SAT 98
[2025-06-07 02:38] VITALS: BP 146/85; PULSE 56; RESP 16; TEMP 36.8; O2SAT 98
== END 2025-06-07 02:39 | disposition home or self-care (01) ==
PROVIDERS: Emergency Provider Student in an Organized Health Care Education/Training Program
DX: K04.7 Periapical abscess without sinus (principal)
CPT/HCPCS: 70487; 99283; 99284; Q9967

== ENCOUNTER → 2025-06-07 00:50 | Outpatient (BNV) | payer SELFPAY | PROVIDERS: Emergency Provider Student in an Organized Health Care Education/Training Program; Visit Provider Radiology Diagnostic Radiology | DX: K08.89 Other specified disorders of teeth and supporting structures (principal) | CPT/HCPCS: 70487 ==

== ENCOUNTER 2025-08-20 00:19 | Emergency (ER) | payer MEDICAID, SELFPAY ==
[2025-08-20] VITALS (11 sets, daily range): BP systolic 94–127; BP diastolic 40–78; PULSE 66–95; RESP 12–20; TEMP 36.4; O2SAT 93–99; BMI 25.1
--- NOTE | 2025-08-20 00:32 | ED.ALCOHOL ---
HPI - Alcohol General Chief Complaint: ETOH/Substance Use Stated Complaint: ETOH Time Seen by Provider: 08/20/25 00:22 Source: patient and EMS Mode of arrival: EMS Limitations: other History of Present Illness ED Provider: Dr. Hetal Yuan HPI narrative: Patient comes to the emergency room accompanied by EMS and PD. According to EMS and PD, the patient was very intoxicated, found in the hallway of his apartment complex. Neighbors called 911 to pick him up. When EMS arrived, patient was very aggressive, very intoxicated, the patient tried punching them. Paramedics were trying to help him stand up so that they could get him into the stretcher. Patient is sober father came out of his apartment, and started trying to punch the paramedics. PD had to be called Related Data Previous Rx's ?Medication ?Instructions ?Recorded doxycycline monohydrate 100 mg 100 mg PO BID #20 tabs 07/12/21 tablet ibuprofen 800 mg tablet 800 mg PO Q8H PRN pain #20 tabs 07/12/21 mupirocin 2 % topical ointment 1 appl topical TID #22 grams 07/12/21 ondansetron 4 mg disintegrating 4 mg PO Q6H PRN nausea and 12/18/21 tablet vomiting #10 tabs acetaminophen 500 mg tablet 500 mg PO Q6H PRN fever or pain 10/20/23 (Tylenol Extra Strength) #14 tabs cyclobenzaprine 5 mg tablet 5 mg PO Q8H PRN pain (scale score 10/20/23 7-10) 5 days #14 tabs lidocaine 5 % topical patch 1 patch topical DAILY PRN pain #30 10/20/23 (Lidoderm) ea naproxen 500 mg tablet 500 mg PO BID PRN pain 10 days #20 10/20/23 tabs cyclobenzaprine 10 mg tablet 10 mg PO TID PRN muscle spasm #15 02/10/24 tabs lidocaine 5 % topical patch 1 patch topical DAILY #15 ea 02/10/24 (Lidoderm) naproxen 500 mg tablet 500 mg PO BID PRN pain #30 tabs 02/10/24 cefuroxime axetil 500 mg tablet 500 mg PO Q12H #14 tabs 04/25/24 acetaminophen 500 mg capsule 500 mg PO Q6H PRN pain #14 caps 08/25/24 ibuprofen 600 mg tablet 600 mg PO Q8H PRN pain #14 tabs 08/25/24 cyclobenzaprine 10 mg tablet 10 mg PO TID PRN pain #14 tabs 12/09/24 ibuprofen 400 mg tablet 400 mg PO Q6H PRN pain #20 tabs 12/09/24 amoxicillin 875 mg-potassium 1 tab PO Q12H 7 days #14 tabs 06/07/25 clavulanate 125 mg tablet Allergies Allergy/AdvReac Type Severity Reaction Status Date / Time No Known Allergies (No Known Allergy Verified 08/20/25 00:28 Allergies*) Review of Systems Review of Systems: very intoxicated, c/o nausea and vomiting [facility] Social History Social History Alcohol intake: current Alcohol intake frequency: holidays/special occasions only Patient Tobacco Use Status: Never used Tobacco Substance Use Type: Marijuana Advance Directives: No Advance Directives Information Provided: No Physical Exam ED Exam Exam: Appearance: Alert. Belligerent, combative, redirectable but making himself throw up by inserting his whole hand into his mouth Eyes: Pupils equal, round and reactive to light. ENT: Pharynx normal. Neck: Normal inspection. Neck supple. No lymph nodes noted. No crepitus CVS: Normal heart rate and rhythm. Pulses normal. Normal S1 and S2 Respiratory: No respiratory distress. Breath sounds normal. No Wheezing. No rales Abdomen: Soft and nontender. No rigidity. No distention. Skin: Skin warm and dry. Normal skin color. Normal skin turgor. Extremities: No lower extremity edema. No Lacerations. No Rash Neuro: Speaking full sentences, unable to fully participating cranial nerve assessment. Intoxicated Psych: On arrival belligerent and combative but then became redirectable Vital Signs: Vital Signs - 24 hr 08/20/25 00:27 08/20/25 00:52 08/20/25 01:07 Pulse Rate 95 91 86 Respiratory Rate 20 20 18 Blood Pressure 127/69 103/50 L 95/43 L Pulse Oximetry 95 93 94 Oxygen Delivery Method Room Air Room Air Room Air 08/20/25 01:22 08/20/25 01:39 08/20/25 02:09 Pulse Rate 83 79 81 Respiratory Rate 17 16 20 Blood Pressure 94/40 L 94/44 L 103/53 L Pulse Oximetry 94 96 99 Oxygen Delivery Method Room Air Room Air Room Air 08/20/25 03:11 08/20/25 03:12 08/20/25 05:59 Pulse Rate 84 66 Respiratory Rate 16 12 12 Blood Pressure 105/53 L 105/53 L 103/59 L Pulse Oximetry 95 96 Oxygen Delivery Method BMI result Body Mass Index 25.1 Course Course Course Narrative: Patient complaining of alcohol intoxication, admits that he has been drinking a lot of alcohol with red bull. Patient keeps vomiting, however, patient keeps taking his full hand inside of his muscle makes him vomit. Patient already received Compazine. Patient now also getting diazepam, Benadryl and IM Haldol According to EMS and PD, patient did not have any injuries/falls. Reevaluation(s) Reevaluation #1: 6:57 AM 08/20/2025 (Dr. Eron Richter): I, Dr. Richter have take over the care of this patient, I reviewed pertinent blood work and imaging, re-evaluated the patient when appropriate. Medical Decision Making Medical Decision Making [facility] Narrative: My interpretation of labs: No significant abnormality of hematology, chemistry shows a potassium of 3.0 which was repleted p.o. ETOH 267 Physician observation started at 00:30 Differential Diagnosis Differential Diagnoses: The differential diagnosis associated with the presentation includes (Alcohol intoxication, polysubstance abuse) Admission/Observation Consideration of admission/observation: Escalation of care including admission/observation considered (Patient is under physician observation waiting to become sober) Lab Data [facility] Lab Attestation statement: I reviewed the patient's lab results. 08/20/25 00:37 08/20/25 00:37 Labs: Lab Results 08/20/25 Range/Units 00:37 WBC 10.7 (4.8-10.8) X10*3/uL RBC 5.07 (4.60-5.80) X10*6/uL Hgb 15.3 (14.0-18.0) g/dl Hct 45.1 (42.0-52.0) % MCV 89.0 (80.0-98.0) fL MCH 30.2 (27.0-33.0) pg MCHC 33.9 (31.0-36.0) g/dl RDW 11.9 (11.0-16.0) % Plt Count 197 (160-400) X10*3/uL MPV 10.9 (9.4-12.4) fL Immature Gran % (Auto) 0.3 (0.0-0.4) % Neut % (Auto) 76.9 H (45-73) % Lymph % (Auto) 15.7 L (20-40) % Wilkin % (Auto) 6.6 (2-11) % Eos % (Auto) 0.2 (0-4) % Baso % (Auto) 0.3 (0-2) % Lymph # (Auto) 1.7 (1.2-4.9) X10*3/uL Wilkin # (Auto) 0.7 (0.1-1.2) X10*3/uL Eos # (Auto) 0.0 (0.0-0.4) X10*3/uL Baso # (Auto) 0.0 (0.0-0.2) X10*3/uL Abs Immat Gran (auto) 0.03 (0.00-0.03) X10*3/uL Absolute Neuts (auto) 8.2 (2.0-8.3) x10*3/uL Absolute Nucleated RBC 0.000 (0.0-0.012) X10*3/uL Nucleated RBC % (auto) 0.0 (0.0-0.2) /100WBC Sodium 143 (135-145) mmol/L Potassium 3.0 L (3.3-5.1) mmol/L Chloride 105 (96-108) mmol/L Carbon Dioxide 25 (22-29) mmol/L Anion Gap 16 (12-20) BUN 10 (9-16) mg/dL Creatinine 1.10 (0.5-1.4) mg/dL Estim Creat Clear Calc 95.8 Estimated GFR > 60 Random Glucose 136 H (60-115) mg/dL Calcium 9.0 (8.4-10.2) mg/dL Magnesium 2.6 (1.6-2.6) mg/dL Total Bilirubin 0.3 (0.0-1.0) mg/dL Direct Bilirubin 0.1 (0.0-0.5) mg/dL AST 30 (5-37) U/L ALT 28 (0-40) U/L Alkaline Phosphatase 101 (39-117) U/L Total Protein 7.8 (6.5-8.0) g/dL Albumin 5.3 H (3.5-5.0) g/dL Ethyl Alcohol 267 mg/dL Medications Administered Discontinued Medications Generic Name Dose Route Start Last Admin Trade Name Freq PRN Reason Stop Dose Admin Diazepam 5 mg 08/20/25 00:33 08/20/25 00:38 Diazepam 10 Mg/2 Ml Cartridge IVPUSH 08/20/25 00:34 5 mg STAT STA Administration Diphenhydramine HCl 50 mg 08/20/25 00:33 08/20/25 00:42 Diphenhydramine Hcl 50 Mg/Ml Vial IVPUSH 08/20/25 00:34 50 mg ONCE ONE Administration Haloperidol Lactate 5 mg 08/20/25 00:33 08/20/25 00:38 Haloperidol Lactate 5 Mg/Ml Vial IM 08/20/25 00:34 5 mg STAT STA Administration Sodium Chloride 1,000 mls @ 999 mls/hr 08/20/25 00:36 08/20/25 03:08 Ns IVCONT 08/20/25 01:36 Infused .Q1H1M ONE Infusion Sodium Chloride 1,000 mls @ 999 mls/hr 08/20/25 01:45 08/20/25 03:08 Ns IV 08/20/25 02:45 Infused .Q1H1M TICO Infusion Prochlorperazine Edisylate 10 mg 08/20/25 00:33 08/20/25 00:37 Prochlorperazine Edisylate 10 Mg/2 Ml Vial IV 08/20/25 00:34 10 mg ONCE ONE Administration Critical Care Time Critical Care Time Critical Care Time: Yes Total Critical Care Time: 45 Attestation: I have personally provided critical care time. Time includes review of lab data, radiology results, discussion with consultants, and monitoring for potential decompensation. Intervention performed as documented. Discharge Plan Discharge Clinical Impression: Alcoholic intoxication, Aggressive behavior Additional Instructions: Alcohol use disorder You were seen in the Emergency Department today for treatment of alcohol use disorder.? You may have been given medications to help with your withdrawal symptoms.? Please do not drink alcohol with them. This is very dangerous and can cause respiratory depression or other adverse reactions depending on the medication. If you would like to cut down or stop your alcohol use please consider calling our outpatient Addiction Treatment office:? [facility] ([id number] [id number]) [address] You have also been given a list of treatment providers in the area that can assist as well.? If you experience seizures, vomiting blood, black stools, falls, severe headache, chest pain, fevers, trouble breathing, hallucinations or any other concerns you need to call 911 or seek immediate care. Please stay hydrated. Prescriptions: No Action ondansetron 4 mg tablet,disintegrating 4 mg PO Q6H PRN (Reason: nausea and vomiting) Qty: 10 0RF doxycycline monohydrate 100 mg tablet 100 mg PO BID Qty: 20 0RF ibuprofen 800 mg tablet 800 mg PO Q8H PRN (Reason: pain) Qty: 20 0RF mupirocin 2 % ointment 1 appl topical TID Qty: 22 0RF amoxicillin-pot clavulanate 875-125 mg tablet 1 tab PO Q12H 7 Days Qty: 14 0RF acetaminophen [Tylenol Extra Strength] 500 mg tablet 500 mg PO Q6H PRN (Reason: fever or pain) Qty: 14 0RF lidocaine [Lidoderm] 5 % adhesive patch,medicated 1 patch topical DAILY MDD remove after 12 hours PRN (Reason: pain) Qty: 30 0RF Rx Instructions: leave on most painful area for up to 12 hrs naproxen 500 mg tablet 500 mg PO BID PRN (Reason: pain) 10 Days Qty: 20 0RF cyclobenzaprine 5 mg tablet 5 mg PO Q8H PRN (Reason: pain (scale score 7-10)) 5 Days Qty: 14 0RF cyclobenzaprine 10 mg tablet 10 mg PO TID PRN (Reason: muscle spasm) Qty: 15 0RF naproxen 500 mg tablet 500 mg PO BID PRN (Reason: pain) Qty: 30 0RF lidocaine [Lidoderm] 5 % adhesive patch,medicated 1 patch topical DAILY Qty: 15 0RF Rx Instructions: leave on most painful area for up to 12 hrs cefuroxime axetil 500 mg tablet 500 mg PO Q12H Qty: 14 0RF acetaminophen 500 mg capsule 500 mg PO Q6H PRN (Reason: pain) Qty: 14 0RF ibuprofen 600 mg tablet 600 mg PO Q8H PRN (Reason: pain) Qty: 14 0RF cyclobenzaprine 10 mg tablet 10 mg PO TID PRN (Reason: pain) Qty: 14 0RF ibuprofen 400 mg tablet 400 mg PO Q6H PRN (Reason: pain) Qty: 20 0RF Print Language: [place] Citizen
[2025-08-20] MEDS: diazePAM 10 MG/2 ML CARTRIDGE 5 MG IVPUSH (00:38)
[2025-08-20 00:42] LABS: Hematocrit 45.1 % (42.0-52.0); Hemoglobin 15.3 g/dl (14.0-18.0); Imm Gran Abs Auto 0.03 X10*3/uL (0.00-0.03); Imm Gran Pct Auto 0.3 % (0.0-0.4); Lymphocytes Absolute Auto 1.7 X10*3/uL (1.2-4.9); MANUAL DIFF FLAG NO; Mean Corpuscular HGB Conc 33.9 g/dl (31.0-36.0); Mean Corpuscular Hemoglobin 30.2 pg (27.0-33.0); Mean Corpuscular Volume 89.0 fL (80.0-98.0); NRBC Abs Auto 0.000 X10*3/uL (0.0-0.012); NRBC Pct Auto 0.0 /100WBC (0.0-0.2); Platelet Count 197 X10*3/uL (160-400); Red Blood Count 5.07 X10*6/uL (4.60-5.80); White Blood Count 10.7 X10*3/uL (4.8-10.8)
--- NOTE | 2025-08-20 00:55 | PC.NURSE ---
patient arrived via ems. report to ems was patient has been drinking alcohol since noon. [place] [address] [place] [address] was not cooperative with ems and aggressive to them. was not aggressive here. patient was continuously putting his fingers down his throat stating he wanted to vomit. instructed multiple times ti stop putting fingers in throat but would not follow instructions. patient medicated per providers orders. patient now resting quietly.
[2025-08-20 00:56] LABS: Alanine Aminotransferase 28 U/L (0-40); Albumin Level 5.3 g/dL (3.5-5.0); Alkaline Phosphatase 101 U/L (39-117); Anion Gap 16 (12-20); Aspartate Amino Transferase 30 U/L (5-37); Blood Urea Nitrogen 10 mg/dL (9-16); Calcium 9.0 mg/dL (8.4-10.2); Carbon Dioxide 25 mmol/L (22-29); Chloride 105 mmol/L (96-108); Creatinine Clr Calc Pharmacy 95.8; Estimated Glomerular Filt Rate > 60; Magnesium 2.6 mg/dL (1.6-2.6); Potassium 3.0 mmol/L (3.3-5.1); Sodium 143 mmol/L (135-145); Total Protein 7.8 g/dL (6.5-8.0)
--- NOTE | 2025-08-20 06:04 | PC.NURSE ---
patient asleep. will defer PO potassium until patient is more awake and alert.
[2025-08-20] MEDS: Potassium Chloride ER 20 MEQ TAB.ER.PRT 40 MEQ PO (11:02)
--- NOTE | 2025-08-20 11:08 | PC.NURSE ---
Awake, alert and oriented, requesting discharge. Called , stating she has patients phone
== END 2025-08-20 11:12 | disposition home or self-care (01) ==
PROVIDERS: Emergency Provider Emergency Medicine
DX: F10.129 Alcohol abuse with intoxication, unspecified (principal); Y90.8 Blood alcohol level of 240 mg/100 ml or more; R45.6 Violent behavior
CPT/HCPCS: 36415; 80048; 80076; 80307; 83735; 85025; 96361; 96372; 96374; 96375; 99284; J0737; J1200; J1630; J3360